=== PATIENT | male | born 1930 | race Caucasian/White ===

== ENCOUNTER 2018-11-12 13:38 | Inpatient (IN) | payer OTHER ==
[~2018-11-12] VITALS: Ht 177.8 cm; Wt 51.7 kg
--- NOTE | 2018-11-12 14:09 | NUR ---
PT TO ED FOR EVAL OF FALL. PT HAD FALLEN IN BATHROOM BETWEEN TOILET AND WALL. PT ARRIVED VIA [facility] WITH HEMATOMA TO TOP OF HEAD WITH ABRASION. NO ACTIVE BLEEDING. QUARTER SIZED ABRASION TO L SHOULDER. ECCHYMOSIS TO L RIB AREA. PAIN WITH PALPATION. SKIN TEAR TO L ELBOW. NO ACTIVE BLEEDING. DENIES PAIN OR DISCOMFORT TO NECK BACK OR HIP. PT AWAKE AND ORIENTED X 2. FOLLOWS ALL COMMANDS. NO DISTRESS. PT TO ROOM 9. PLACED ON MONITOR.
--- NOTE | 2018-11-12 14:27 | NUR ---
MSE COMPLETED BY DR. LOVETT.
[2018-11-12 14:42] LABS: BASOPHIL % 0.1 % (0-2); PLATELET COUNT 332 x10^3mcL (130-400)
--- NOTE | 2018-11-12 14:55 | NUR ---
PT TAKEN TO X-RAY VIA GURNEY BY IVORY, PT IN NO DISTRESS.
[2018-11-12 15:03] LABS: CALCIUM 9.4 mg/dL (8.5-10.1); CARBON DIOXIDE 29.9 mmol/L (21-32); CHLORIDE SERUM 103 mmol/L (98-107); CREATININE SERUM 0.9 mg/dL (0.7-1.3); GLUCOSE SERUM 103 mg/dL (74-106); POTASSIUM SERUM 4.5 mmol/L (3.5-5.1); SODIUM SERUM 140 mmol/L (136-145)
[2018-11-12 15:08] LABS: ALKALINE PHOSPHATASE 60 U/L (46-116); ALT/SGPT 18 U/L (16-63); AST/SGOT 24 U/L (15-37); BILIRUBIN TOTAL 0.6 mg/dL (0.20-1.00); TOTAL PROTEIN, SERUM 7.7 g/dL (6.4-8.2)
--- NOTE | 2018-11-12 15:18 | NUR ---
PT BROUGHT BACK FROM CT WITHOUT INCIDENCE.
--- NOTE | 2018-11-12 15:35 | NUR ---
DR. LOVETT AT BEDSIDE REEVALUATING PT. PT ABLE TO AMBULATE WITH ASSISTANCE.
--- NOTE | 2018-11-12 15:41 | NUR ---
CONTACTED PT'S SON MARK ANTHONY WHOM REPORTS PT AMBULATES WITH CANE OR WALKER AT HOME. SON REPORTS HE WILL BE ABLE TO LETTERPRESS SETTER PT AFTER 5 TODAY.
--- NOTE | 2018-11-12 15:45 | NUR ---
PT HAS SCATTERED ABRASIONS TO BACK AT DIFFERENT STAGES OF HEALING AND REDNESS TO COCCYX/BUTTOCK REGION.
--- NOTE | 2018-11-12 18:35 | NUR ---
SON MARK ANTHONY ARRIVED TO STOCK CLERK SELF SERVICE STORE PT AND VOICED CONCERNS THAT PT NEEDS TO BED MOVED FROM HOME WHERE HE RESIDES WITH AND GO TO A FACILITY THAT HE CAN RECEIVE "AROUND THE CLOCK CARE" D/T HIS WEAKNESS AND NOT BEING ABLE TO CARE FOR HIM BY HERSELF. DR. JACKMAN MADE AWARE AND WILL REEVALUATE PT.
--- NOTE | 2018-11-12 19:27 | NUR ---
REPORT GIVEN TO BHAVANI CHAVEZ.
--- NOTE | 2018-11-12 19:28 | NUR ---
RECEIVED REPORT FROM YASIR CHAVEZ. I WILL RESUME FURTHER OF THIS PATIENT.
--- NOTE | 2018-11-12 19:35 | NUR ---
NO DISTRESS NOTED AT THIS TIME, PT DENIES ANY PAIN. WILL CONT TO MONITOR.
--- NOTE | 2018-11-12 19:35 | NUR ---
PT AAOX2, ABLE TO VERBALIZE NEEDS AND FOLLOW COMMANDS, MD MADE AWARE. PT ON MONITOR, VSS. SON AND AT THE BEDSIDE. WILL CONT TO MONITOR PT.
--- NOTE | 2018-11-12 20:10 | NUR ---
ASSISTED PT TO USE URINAL, PT UNABLE TO URINATE AT THIS TIME. PT IS AAO4, NO DISTRESS NOTED AT THIS TIME, RESP E/U. SON AND AT THE BEDSIDE. WILL CONT TO MONITOR.
[2018-11-12 21:30] LABS: CHOLESTEROL/HDL RATIO 3.2; MAGNESIUM 1.8 mg/dL (1.8-2.4); PHOSPHOROUS 3.6 mg/dL (2.5-4.9)
--- NOTE | 2018-11-12 21:30 | NUR ---
PT IS RESTING IN POSITION OF COMFORT, AAOX1, NO DISTRESS NOTED. NO ONE AT THE BEDSIDE AT THIS TIME. WILL CONT TO MONITOR.
[2018-11-12 21:37] LABS: T3 TOTAL 0.89 ng/mL
[2018-11-12 21:41] LABS: FREE T4 1.04 ng/dL (0.76-1.46); T4(THYROXINE) 5.2 ug/dL (4.7-13.3)
--- NOTE | 2018-11-12 22:05 | NUR ---
MED REC AND BELONGINGS LIST DONE. PT IS AAOX1, PT ONLY KNOWS HIS NAME AT THIS TIME, PT IN NO DISTRESS, RESP E/U, PT ABLE TO FOLLOW COMMANDS AND VERBALIZE NEEDS. VSS. WILL CONT TO MONITOR.
--- NOTE | 2018-11-12 23:30 | NUR ---
GAVE REPORT TO FABRICE CHAVEZ [facility] WHO WILL RESUME FURTHER CARE OF THIS PT.
--- NOTE | 2018-11-12 23:51 | NUR ---
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
--- NOTE | 2018-11-12 23:51 | NUR ---
RECEIVED PT FROM ED VIA ALBERTO, CAME IN DUE TO PAIN AND MULTIPLE FALLS. AAOX1, FORGETFUL. ABLE TO FOLLOW SIMPLE COMMANDS. SPEECH IS CLEAR. NO ARM DRIFT NOTED. SPEECH IS CLEAR. NO SOB NOTED. LUNG SOUNDS CTA. DENIES CHEST PAIN/PRESSURE. DENIES ABDOMINAL DISCOMFORT. ABLE TO MOVE ALL EXTREMITIES. GENERALIZED WEAKNESS NOTED, ABLE TO TURN SELF IN BED W/ VERY MINIMAL ASSIST. W/ SCATTERED ABRASIONS/SCABS/BLANCHABLE ERYTHEMA ON BUE, LLE, AND BACK. W/ BLANCHABLE ERYTHEMA ON BILATERAL HEELS AND RIGHT SHOULDER. OPTIFOAM APPLIED ON THE BUTTOCKS FOR PROTECTION. URINE INCONTINENT. W/ TRACE EDEMA ON BLE. SIDE RAILS UPX2. CALL LIGHT ON REACH. HOB ELEVATED AT 30 DEG. BED ALARM ON. IV SITE PATENT AND INTACT. ENDORSED TO PRIMARY NURSE FABRICE FOR CONTINUITY OF CARE
[2018-11-13 00:22] VITALS: Ht 177.8 cm; Wt 51.7 kg
--- NOTE | 2018-11-13 01:59 | NUR ---
NO ACUTE DISTRESS OBSERVED AT THIS TIME. PT LAYING IN BED, BREATHING EVEN AND UNLABORED, EASILY AROUSABLE TO VERBAL STIMULI, DENIES PAIN OR DISCOMFORT. CALL LIGHT WITHIN REACH. WILL CONTINUE TO MONITOR
--- NOTE | 2018-11-13 02:31 | NUR ---
DR. CAN MADE AWARE NO ORDERS FOR CODE STATUS AT THIS TIME. WILL ANTICIPATE
[2018-11-13 05:55] VITALS: BP 141/58
[2018-11-13 06:18] LABS: PLATELET COUNT 264 x10^3mcL (130-400)
--- NOTE | 2018-11-13 06:23 | NUR ---
NO SIGNIFICANT CHANGES TO REPORT, PT COMPLIED WITH NURSING CARE THROUGHOUT THE SHIFT WITH NO ACUTE EVENTS OVERNIGHT. NO ACUTE DISTRESS OBSERVED AT THIS TIME, PT LAYING IN BED, BREATHING EVEN AND UNLABORED. COMFORT AND SAFETY MEASURES MAINTAINED. ALL NEEDS ASSESSED AND ATTENDED TO. CALL LIGHT WITHIN REACH. WILL CONTINUE TO MONITOR AND ENDORSE CARE TO DAY SHIFT NURSE
[2018-11-13 06:35] LABS: BASOPHIL % 0 % (0-2); RED CELL DISTRIBUTION WIDTH 16.1 % (11.5-14.5)
[2018-11-13 06:43] LABS: CARBON DIOXIDE 27.9 mmol/L (21-32); CHLORIDE SERUM 103 mmol/L (98-107); CREATININE SERUM 0.9 mg/dL (0.7-1.3); GLUCOSE SERUM 90 mg/dL (74-106); POTASSIUM SERUM 3.9 mmol/L (3.5-5.1); SODIUM SERUM 142 mmol/L (136-145)
--- NOTE | 2018-11-13 07:57 | NUR ---
RECEIVED PATIENT FROM SCOTT AVINA. PATIENT IN BED, NO COMPLAINTS OF PAIN OR SOB. A/OX1, PERSON. NEED TO REORIENT. CALL LIGHT IN REACH, BED IN LOWEST POSITION, BED ALARM ON, PATIENT NEAR NURSES STATION.
--- NOTE | 2018-11-13 08:46 | NUR ---
PT IN WITH PATIENT, PT LIZETH STATES HE IS ABLE TO WALK W CANE BUT CONTINUES TO BE CONFUSED. WILL CONTINUE TO MONITOR.
[2018-11-13 08:56] VITALS: BP 147/71
--- NOTE | 2018-11-13 10:15 | NUR ---
SPOKE W PATIENT SON MARK ANTHONY ABOUT HOME MEDICATIONS. WALTER ZEPEDA NOTIFIED THAT PATIENT URINE WAS RED TINGED. NOTIFIED DR OSBORNE ABOUT HOME MEDS & URINE. DR ALVARENGA IN TO SPEAK WITH PATIENT ABOUT PLAN OF CARE. PATIENT SEATED IN CHAIR W NO COMPLAINTS OF PAIN, AWARE TO CALL FOR STAFF FOR ASSISTANCE. CALL LIGHT IN REACH.
[2018-11-13] MEDS ORDERED: CARVEDILOL3.125 M1 PO (10:19)
[2018-11-13] MEDS ORDERED: PRILOSEC OTC20 M1 PO (10:20)
[2018-11-13] MEDS ORDERED: MEGL (10:23)
--- NOTE | 2018-11-13 12:34 | NUR ---
Initial Nutrition Assessment- Dx: Intractable Pain PMHx: Alzheimer's PSHx: none Labs: (11/13) BUN 28H Meds: NaCl IV, Zofran Diet: Regular diet x 0 day PO Intake: 50% of breakfast per RN notes. Ht: 5'10 Wt: 114 lb, 52 kg BMI: 16.4 kg/m2 (Underweight ) IBW: 166 lb, 75 kg %IBW: 69 UBW: unknown Age: 87 yrs old/Male Food Allergies: unknown Skin: R/L arm w/ scab/abrasion, R/L Medial bakc w/ scab/abrasion, R/L Medial buttocks w/ blanchable redness, R/L heel w/ blanchable redness, R shoulder w/ blanchable redness, LLE w/ scabs/abrasion, L hip w/ blanchable erythema Ismael: 19 Edema: trace edema to BLE GI: denies any abd discomfort, active bowel sounds. Last BM 11/12/18, formed. Pt seen sitting up in chair at time of RD visit. Pt appears to be altered and was not able to answer RD interview. Pt is underweight and ONS is warranted for additional calories and protein for wt gain promotion. Problem with: N/V/D/C: none Problems with: Chewing: no Swallowing: no Current appetite: fair Recent wt change: unknown %wt change: n/a Vitamin/Supplement use: unknown Special diet at home: none Physical activity: none, pt w/ generalized weakness Education: pt is not appropriate for nutrition education. Estimated Nutritional Needs Based on actual body weight 52 kg Energy: 1057-4404 kcal/d (30-35 kcal/kg-increased for wt gain promotion) Protein: 52-78 g/d (1-1.5 g/kg-Geriatric maintenance and preservation of lean body mass) Fluid: 1300 ml/d (25ml/kg -fluid balance) or per doctor Nutrition Diagnosis Underweight r/t advanced age AEB cognitive decline and BMI 16.4. Intervention *Recommend adding Ensure Enlive TID. ONS will provide additional 1050 kcal and 60 gm protein daily. Monitor/Evaluate Goal: PO intake at least 75% of estimated needs Monitor: PO intake, Labs, GI function F/U in 2-3 days as high risk (11/15-11/16)
--- NOTE | 2018-11-13 12:35 | NUR ---
*Recommend adding Ensure Enlive TID. ONS will provide additional 1050 kcal and 60 gm protein daily.
--- NOTE | 2018-11-13 17:15 | NUR ---
CONTACTED DR OSBORNE FOR PATIENT ORTHOSTATIC VS, AND FOR ADDITIONAL ORDERS FOR HOME MEDS. CURRENT BP IS 168/77, HR 72, DR OSBORNE AWARE. ALSO NOTIFIED THAT PATIENT URINE IS DARK IN COLOR, UNABLE TO COLLECT FOR UA. RECOMMENDED STRAIGHT CATH, DR OSBORNE RECOMMEND BLADDER SCAN FIRST. WILL AWAIT ORDERS FOR BLADDER SCAN. PATIENT BACK IN BED, NO COMPLAINTS OF PAIN. CALL LIGHT IN REACH.
--- NOTE | 2018-11-13 18:20 | NUR ---
BLADDER SCAN COMPLETED, RESIDUAL URINE IN BLADDER 160 ML. WILL ENDORSE TO ONCOMING NURSE TO NOTIFY CESSPOOL CLEANER RESIDENT. PATIENT IN BED, NO COMPLAINTS OF PAIN OR SOB AT THIS TIME.
--- NOTE | 2018-11-13 19:05 | NUR ---
RECEIVED PT LAYING IN BED, NO ACUTE DISTRESS OBSERVED, DENIES PAIN OR DISCOMFORT. AA/OX1, SELF ONLY, SPEECH CLEAR AND APPROPRIATE, ABLE TO MAKE NEEDS KNOWN, AROUSABLE TO VERBAL STIMULI. MED-SURG, NO TELE, NO CP. PULSES PRESENT AND EQUAL THROUGHOUT, TRACE EDEMA TO BLE. BREATHING ON RA, EVEN AND UNLABORED, NO SOB OR DYSPNEA OBSRVED, LUNGS CTA. ABD ROUND AND SOFT WITH ACTIVE BOWEL SOUNDS, NO N/V/D. INCONTINENT OF URINE, WILL PROVIDE PERICARE NEEDED, PER DAY SHIFT NURSE, BLOODY URINE NOTED FOR WHICH BLADDER SCAN YIELD 160 ML, SCROTAL EDEMA NOTED. GENERALIZED WEAKNESS NOTED, UP WITH P.T., FALL PRECAUTIONS IN PLACE, CANE AT BEDSIDE. BLANCHABLE ERYTHEMA TO BUTTOCKS, HYDRAGAURD AND OPTIFOAM IN PLACE, CDI. BLANCHABLE ERYTHEMA TO L HIP, HYDRAGAURD. SCABS AND ABRASIONS TO BACK, LUMBER STACKER. SCAB TO LLE, MAUREEN. SCABS AND SKIN TEAR TO LUE, LUMBER STACKER. BLANCHABLE ERYTHEMA TO BOTH HEELS, MAUREEN. IV TO LFA IN PLACE, DRY, PATENT, INTACT, AND INFUSING IVF WELL, NO PAIN, REDNESS OR SWELLING NOTED. COMFORT AND SAFETY MEASURES IN PLACE. BED IN LOWEST POSITION WITH SIDE RAILS UP X2 AND BED ALARM ACTIVATED. CALL LIGHT WITHIN REACH. WILL CONTINUE TO MONITOR
--- NOTE | 2018-11-13 19:05 | NUR ---
RECEIVED PT LAYING IN BED, NO ACUTE DISTRESS OBSERVED, DENIES PAIN OR DISCOMFORT. AA/OX1, SELF ONLY, SPEECH CLEAR AND APPROPRIATE, ABLE TO MAKE NEEDS KNOWN, AROUSABLE TO VERBAL STIMULI. MED-SURG, NO TELE, NO CP. PULSES PRESENT AND EQUAL THROUGHOUT, TRACE EDEMA TO BLE. BREATHING ON RA, EVEN AND UNLABORED, NO SOB OR DYSPNEA OBSRVED, LUNGS CTA. ABD ROUND AND SOFT WITH ACTIVE BOWEL SOUNDS, NO N/V/D. FREELY VOIDS URINE, INCONTINENT, WILL PROVIDE PERICARE NEEDED. GENERALIZED WEAKNESS NOTED, UP WITH P.T., FALL PRECAUTIONS IN PLACE, CANE AT BEDSIDE. BLANCHABLE ERYTHEMA TO BUTTOCKS, HYDRAGAURD AND OPTIFOAM IN PLACE, CDI. BLANCHABLE ERYTHEMA TO L HIP, HYDRAGAURD. SCABS AND ABRASIONS TO BACK, LPN INSTRUCTOR. SCAB TO LLE, MAUREEN. SCABS AND SKIN TEAR TO LUE, MAUREEN. BLANCHABLE ERYTHEMA TO BOTH HEELS, MAUREEN. IV TO LFA IN PLACE, DRY, PATENT, INTACT, AND INFUSING IVF WELL, NO PAIN, REDNESS OR SWELLING NOTED. COMFORT AND SAFETY MEASURES IN PLACE. BED IN LOWEST POSITION WITH SIDE RAILS UP X2 AND BED ALARM ACTIVATED. CALL LIGHT WITHIN REACH. WILL CONTINUE TO MONITOR
[2018-11-13 20:42] VITALS: BP 147/76
--- NOTE | 2018-11-13 22:25 | NUR ---
PT HAD INCONTINENT EPISODE OF DARK TEA COLORED URINE. SCROTAL EDEMA NOTED. DR. CAN MADE AWARE
--- NOTE | 2018-11-14 05:24 | NUR ---
NO SIGNIFICANT CHANGES TO REPORT, PT COMPLIED WITH NURSING CARE THROUGHOUT THE SHIFT WITH NO ACUTE EVENTS OVERNIGHT. NO ACUTE DISTRESS OBSERVED AT THIS TIME, PT LAYING IN BED, BREATHING EVEN AND UNLABORED, AROUSABLE TO VERBAL STIMULI. COMFORT AND SAFETY MEASURES MAINTAINED. ALL NEEDS ASSESSED AND ATTENDED TO. CALL LIGHT WITHIN REACH. WILL CONTINUE TO MONITOR AND ENDORSE CARE TO DAY SHIFT NURSE
[2018-11-14 05:43] VITALS: BP 145/66
--- NOTE | 2018-11-14 06:31 | NUR ---
DR. RICARDO MADE AWARE OF PT'S BLOOD TINGED/ORANGE FOUL SMELLING URINE
[2018-11-14 06:33] LABS: BASOPHIL % 0.3 % (0-2); PLATELET COUNT 236 x10^3mcL (130-400)
[2018-11-14 06:45] LABS: CHLORIDE SERUM 104 mmol/L (98-107); CREATININE SERUM 0.8 mg/dL (0.7-1.3); GLUCOSE SERUM 107 mg/dL (74-106); POTASSIUM SERUM 4.1 mmol/L (3.5-5.1); SODIUM SERUM 140 mmol/L (136-145)
--- NOTE | 2018-11-14 07:20 | NUR ---
RECEIVED PT IN BED. ASSESSED AND DOCUMENTED. DENIES PAIN THIS TIME. SAFTEY PRECAUTIONS ARE IN PLACE. WILL MONITOR.
[2018-11-14 07:31] LABS: RED CELL DISTRIBUTION WIDTH 15.8 % (11.5-14.5)
--- NOTE | 2018-11-14 10:00 | NUR ---
P.T CAME AND AMBULATED THE PT AND ASSISTED PT USED RESTROOM AND BACK PT TO BED. PT IS STABLE. DENIES ANY PAIN.
[2018-11-14 10:18] VITALS: BP 135/59
--- NOTE | 2018-11-14 13:00 | NUR ---
INFORMED ABOUT UA COLLECTED BY PT VOIDED IN URINAL, SHE SAID THAT IS FINE NO NEED STRAIGHT CATH NOW. UA SEND TO LAB. PT IS STABLE. ATE LUNCH.
[2018-11-14 13:58] LABS: UA SPECIFIC GRAVITY 1.025 (1.005-1.035); microscopic required? YES
[2018-11-14 13:59] LABS: urine erythrocyte 3+ (NEGATIVE)
--- NOTE | 2018-11-14 14:15 | NUR ---
INFORMED ABOUT PT UA RESULT. NO NEW ORDER RECEIVED THIS TIME.
[2018-11-14 14:23] VITALS: BP 135/59
--- NOTE | 2018-11-14 16:00 | NUR ---
CALLED PT'S SON AND LEFT MESSAGE FOR PT HAS BEEN DISCHARGED AND NEED RIDE HOME.
--- NOTE | 2018-11-14 17:30 | NUR ---
PT'S SON CALLED AND REQUESTING FOR DISCARGE PT TOMORROW AND HE WANT TO TAKE HIS FATHER TO [facility] TOMORROW RIDE AFTER DC FROM HOSPITAL. CALLED AND INFORMED , SHE SAID SHE WILL TALK TO PT'S SON, PHONE NO. PROVIDED.
[2018-11-14 17:40] VITALS: BP 124/60
--- NOTE | 2018-11-14 18:15 | NUR ---
RECEIVED ORDER FOR SNF PLACEMENT AFTER SPOKE WITH PT'S SON. CHARGE NURSE AWARE.
--- NOTE | 2018-11-14 19:10 | NUR ---
PT RESTING IN BED COMFORTABLY. DENIES ANY PAIN. STABLE. GAVE REPORT TO PRINTING MACHINE OPERATOR TAPE RULES NURSE.
--- NOTE | 2018-11-14 19:35 | NUR ---
PT RESTING COMFORTABLY IN BED WITH NO SIGNS OF ACUTE DISTRESS AT THIS TIME, PT A/O X 1 TO PERSON, PERIPHERAL PULSES PALPABLE THROUGHOUT, LUNG SOUNDS CTA, PT ON RA, BOWLE SOUNDS ACTIVE, ABD SOFT ROUND NONTENDER, PT INCONTINENT OF URINE, PT HAS GENERALIZED WEAKNESS CAN REPOSITION INDEPENDENTLY. SAFETY PRECAUTIONS IN PLACE WILL CONTINUE TO MONITOR
[2018-11-14 20:58] VITALS: BP 133/62
--- NOTE | 2018-11-14 21:50 | NUR ---
PT RESTING IN BED COMFORTABLY DENIES PAIN AT THIS TIME, NO ACUTE RESPIRATORY ISSUES AT THIS TIME, SAFETY PRECAUTIONS IN PLACE WILL CONTINUE TO MONITOR.
--- NOTE | 2018-11-15 00:25 | NUR ---
PT RESTING IN BED COMFORTABLY, DENIES PAIN AT THIS TIME, ALL NEEDS ATTENDED TO, SAFETY PRECAUTIONS IN PLACE WILL CONTINUE TO MONITOR
--- NOTE | 2018-11-15 03:20 | NUR ---
PT RESTING IN BED COMFORTABLY WATCHING TV, PT DENIES PAIN A THIS TIME, NO ACUTE RESPIRATORY DISTRESS AT THIS TIME, SAFETY PRECAUTIONS IN PLACE, WILL CONTINUE TO MONITOR
--- NOTE | 2018-11-15 05:21 | NUR ---
PT WATCHED TV THROUGH MOST OF THE NIGHT AND SLEPT FOR A SMALL PORTION OF THE NIGHT. PT HAD 2 VOIDS DURING THE NIGHT, ASPIRATION PRECAUTIONS MAINTAINED, SAFETY PRECAUTIONS MAINTAINED PT REPOSITIONED SELF THROUGH THE NIGHT. PT HAD NO EPISODE OF PAIN OR ACUTE DISTRESS THROUGH THE NIGHT, ALL NEEDS ATTENDED TO WILL CONTINUE TO MONITOR AND ENDORSE CARE TO ONCOMING RN
[2018-11-15 06:07] VITALS: BP 146/63
--- NOTE | 2018-11-15 07:20 | NUR ---
RECEIVED PT FROM CARRIER ASSOCIATE. ASSESSED AND DOCUMENTED. DENIES PAIN THIS TIME. SAFTEY PRECAUTIONS ARE IN PLACE. WILL MONITOR.
--- NOTE | 2018-11-15 07:24 | NUR ---
PHYSICAL THERAPY DAILY NOTES CO-SIGN All documentation done by the Vest Tailor for 11/15/18 has been reviewed. I agree with the documentation. Reviewed/Co-Signed by: Graciela Rodriguez PT Documentation Done by:DANNY OSHEA [facility]
[2018-11-15 09:42] VITALS: BP 147/70
--- NOTE | 2018-11-15 10:00 | NUR ---
PT IS STABLE. DENIES PAIN. RESTING IN BED COMFORTABLY.
--- NOTE | 2018-11-15 11:06 | NUR ---
Follow-up Nutrition Assessment Dx: Intractable pain Labs: (11/14) Na 140, K 4.1, BG 107H, BUN 28H, Cr 0.8, A1c 5.6, WBC 8.8, H/H 13.1/38L Meds: Antivert, Coreg, Megace, NSIV, Tylenol, Ultram, Zofran Diet: Regular PO intake: (11/14) B/D: 100% L: 80% (11/13) B/L: 100% D: 80% Weights: (11/13) 114#, 51.7 kg Skin: Blanchable redness to B/L buttocks, B/L heels, Rt shoulder, and left shoulder Ismael: 17 Edema: Trace edema to LE Last BM: x 1 (11/15) Per provider progress notes, no acute distress or acute events overnight. Pending plans in place for transfer to SNF for further care per family request. Pt. unable to answer nutrition related questions, as pt. is AO x1 and noted with confusion and with history of Alzheimer's. Pt. tolerating current diet order without GI distress noted per RN. No acute changes in nutritional status noted. Estimated Nutritional Needs based on CBW 51.7 kg: Energy: 1572-1451 kcal (30-35 kcal-wt. gain promotion) Protein: 52-78 g (1.0-1.5 g/kg-weight gain and prevention of lean body mass losses) Fluid: 6732-8201 mL (1 mL/kcal or per MD order-for fluid balance and maintenance) Nutrition Diagnosis 1. Underweight r/t advanced age AEB cognitive decline affecting overall nutritional status and measured BMI 16.4. (Ongoing-modified) Intervention 1. Continue regular diet as ordered and as tolerated. Continue Ensure Enlive TID for supplementation, which will provide 1050 calories and 60 g protein daily. Monitor/Evaluate Previous goal: PO intake at least 75% of estimated needs (met) Goal: PO intake at least 75% of estimated needs Monitor: PO intake, Labs, GI function, skin integrity F/U in 3-5 days as moderate risk (11/18-11/20)
--- NOTE | 2018-11-15 11:06 | NUR ---
Intervention/RD recommendations 1. Continue regular diet as ordered and as tolerated. Continue Ensure Enlive TID for supplementation, which will provide 1050 calories and 60 g protein daily.
[2018-11-15 11:49] VITALS: BP 147/70
--- NOTE | 2018-11-15 12:05 | NUR ---
PT'S SON CAME TO RECOVERY COLLECTOR PT. CALLED AND GAVE REPORT TO DOMINIC . INSTRUCTOR BUSINESS EDUCATION TERI CALLED AND SAID PT'S SON WILL TAKE PT TO [facility]. DISCHARGE INSTRUCTIONS GIVEN AND SIGNED BY PT;S ON WITH CHARGE NURSE. PT DENIES PAIN. IV REMOVED AND DRESSING APPLIED. BRAKE REPAIRER WHEELED PT DOWN TO LOBBY ACCOMPANIED WITH PT'S SON. PB SIGND AND SENT WITH PT. PT DC TO SNF.
--- NOTE | 2018-11-16 07:18 | NUR ---
PHYSICAL THERAPY DAILY NOTES CO-SIGN All documentation done by the Bag Valver for 11/16/18 has been reviewed. I agree with the documentation. Reviewed/Co-Signed by: Graciela Rodriguez PT Documentation Done by:NEY PEREZ PTA
== END 2018-11-15 12:10 | disposition home or self-care (01) | DRG 73 ==
LOC: ED 13:38 → MU 20:14
PROVIDERS: Emergency Medicine; Internal Medicine; ADMIT General Practice
DX: G90.8 Other disorders of autonomic nervous system (principal); N17.0 Acute kidney failure with tubular necrosis; E44.0 Moderate protein-calorie malnutrition; Z68.1 Body mass index [BMI] 19.9 or less, adult; S30.0XXA Contusion of lower back and pelvis, initial encounter; K21.9 Gastro-esophageal reflux disease without esophagitis; I10 Essential (primary) hypertension; G30.9 Alzheimer's disease, unspecified; F02.80 Dementia in other diseases classified elsewhere, unspecified severity, without behavioral disturbance, psychotic disturbance, mood disturbance, and anxiety; W18.39XA Other fall on same level, initial encounter; Y93.89 Activity, other specified; Y92.89 Other specified places as the place of occurrence of the external cause
CPT/HCPCS: 84439; 97116-GP; 97530-GP; J7030; J8597

== ENCOUNTER 2018-11-16 23:35 | Inpatient (IN) | payer OTHER ==
[~2018-11-16] VITALS: Ht 177.8 cm; Wt 47.2 kg
[~2018-11-16 23:35] MED LIST: CARVEDILOL3.125 M1 PO; MEGL; PRILOSEC OTC20 M1 PO
[2018-11-16 23:52] VITALS: Ht 177.8 cm; Wt 47.2 kg
--- NOTE | 2018-11-17 00:05 | NUR ---
PT BROUGHT TO ED BY [facility] S/P UNWITNESSED FALL AT [facility]. PER MEDICS, PT WAS FOUND ON THE FLOOR BY STAFF MEMBERS AFTER UNWITNESSED FALL. MEDICS STATE THAT PT HAS NO COMPLAINTS OF PAIN AT THIS TIME. MEDICS STATE THAT PT HAD EPISODE OF VOMITING AT THE FACITILY. PT AOX1 AT THIS TIME WITH A HX OF DEMENTIA. PT LUNG SOUNDS DIMINISHED TO L SIDE AND PT ON O2 AT THIS TIME FOR O2 OF 90 DURING TRANSPORT. PT NOTED WITH MILD SKIN TEARS TO BILATERAL ELBOWS. DR MURPHY AT BEDSIDE FOR MSE.
--- NOTE | 2018-11-17 00:18 | NUR ---
EKG IN PROGRESS
--- NOTE | 2018-11-17 00:37 | NUR ---
PT TAKEN FOR CT SCAN BY ORACLE FUSION MIDDLEWARE DEVELOPER
[2018-11-17 01:00] LABS: BASOPHIL % 0.3 % (0-2); PLATELET COUNT 338 x10^3mcL (130-400)
--- NOTE | 2018-11-17 01:19 | NUR ---
PT REMAINS FREE FROM S/S OF DISTRESS. AWAKE, ALERT, RESPIRATIONS EVEN AND UNLABORED. SAFETY PRECAUTIONS IN PLACE
[2018-11-17 01:22] LABS: CARBON DIOXIDE 32.4 mmol/L (21-32); CHLORIDE SERUM 101 mmol/L (98-107); GLUCOSE SERUM 123 mg/dL (74-106); POTASSIUM SERUM 3.9 mmol/L (3.5-5.1); SODIUM SERUM 139 mmol/L (136-145)
[2018-11-17 01:26] LABS: ALKALINE PHOSPHATASE 97 U/L (46-116); ALT/SGPT 46 U/L (16-63); AST/SGOT 36 U/L (15-37); BILIRUBIN TOTAL 0.6 mg/dL (0.20-1.00); LIPASE 139 IU/L (73-393)
[2018-11-17 01:28] LABS: ALBUMIN 2.8 g/dL (3.4-5.0); TOTAL PROTEIN, SERUM 8.3 g/dL (6.4-8.2)
[2018-11-17 01:59] LABS: microscopic required? YES; urine erythrocyte 3+ (NEGATIVE)
--- NOTE | 2018-11-17 02:08 | NUR ---
PT REMAINS FREE FROM S/S OF DISTRESS. RESPIRATIONS EVEN AND UNLABORED. SAFETY PRECAUTIONS IN PLACE
--- NOTE | 2018-11-17 02:12 | NUR ---
PT TAKEN OFF 02 AT THIS TIME BY DR. MURPHY TO ASSESS SATURATION WITHOUT OXYGEN. WILL MONITOR CLOSELY.
--- NOTE | 2018-11-17 02:17 | NUR ---
86% 02 SAT WITH NO OXYGEN. PT PLACED ON 2L REQUESTED BY DR. MURPHY. WILL CONTINUE TO MONITOR.
--- NOTE | 2018-11-17 02:19 | NUR ---
02 SAT 92-93% ON 2L/NC. DR. MURPHY MADE AWARE AND STATED TO KEEP PATIENT ON 2L/NC.
--- NOTE | 2018-11-17 02:34 | NUR ---
BREEDING MANAGER AT BEDSIDE
--- NOTE | 2018-11-17 02:41 | NUR ---
REPORT GIVEN TO ALICE CHAVEZ, ALL QUESTIONS AND CONCERNS WERE ADDRESSED
[2018-11-17 03:41] LABS: CHOLESTEROL/HDL RATIO 4.3; MAGNESIUM 1.6 mg/dL (1.8-2.4); PHOSPHOROUS 3.5 mg/dL (2.5-4.9)
[2018-11-17 03:52] VITALS: BP 162/68
[2018-11-17 03:53] LABS: FREE T4 1.2 ng/dL (0.76-1.46); T4(THYROXINE) 5.2 ug/dL (4.7-13.3)
--- NOTE | 2018-11-17 04:18 | NUR ---
RECEIVED PT FROM ER VIA ALBERTO ACCOMPANIED WITH NURSE AND EMT, PT IS FROM [facility] WITH C/O OF FOUND ON THE FLOOR BY STAFF AT [facility], PT IS AWAKE, ALERT AND ORIENTED TO SELF ONLY, CONFUSED WITH SITUATION, PLACE, DATE AND TIME, GARBLED SPEECH, BREATHING EVEN AND UNLABORED, LUNG SOUNDS DIMINISHED, ON AND OFF PRODUCTIVE COUGH, ON O2 3L VIA NC WITH NO RESP DISTRESS NOTED, ON TELE#28 NSR, NO S&S OF CHEST PAIN, WEAK PEDAL PULSES, EDEMA NOTED TO BLE, BLE WITH DISCOLORATION, ABD SOFT AND FLAT WITH ACTIVE BS, NO BM AT THIS TIME, INCONTINENT, PT VOIDED X 1 WITH URINAL AND NOTED WITH SOME BLOOD IN THE URINE, DR CAN MADE AWARE, SKIN TEAR TO MARYCRUZ ELBOWS, OPEN ULCER TO LEFT SIDE BUTTOCKS, NON-BLANCHABLE REDNESS TO BUTTOCKS, AIR MATTRESS IN PLACE, FALL PRECAUTION ON, SIDE RAILS UP, NO DISTRESS NOTED, WILL KEEP TO MONITOR.
[2018-11-17 04:58] LABS: T3 TOTAL 0.76 ng/mL
[2018-11-17 06:11] VITALS: BP 161/68
--- NOTE | 2018-11-17 07:30 | NUR ---
RECEIVED PT FROM DIAZO TECHNICIAN RN. PT AWAKE/ALERT. RESPIRATIONS EQUAL AND UNLABORED ON 2L NC. NO ACUTE RESP DISTRESS NOTED. NO SIGNS OR INDICATIONS OF PAIN NOTED. LACERATION TO LT INDEX FINGER COVERED WITH DRESSING, CDI. OPTIFOAM DRESSING IN PLACE. AIR MATTRESS IN PLACE. WILL CONTINUE TO MONITOR. CALL LIGHT IN REACH. BED IN LOWEST POSITION.
--- NOTE | 2018-11-17 07:45 | NUR ---
US TECHNICAN AT BEDSIDE PERFORMING US RENAL.
--- NOTE | 2018-11-17 08:29 | NUR ---
TITRATED O2 TO 2LNC. SPO2:98%. NO ACUTE RESP DISTRESS NOTED. WILL MONITOR
[2018-11-17 08:45] LABS: BASOPHIL % 0.1 % (0-2); PLATELET COUNT 294 x10^3mcL (130-400)
[2018-11-17 08:48] LABS: RED CELL DISTRIBUTION WIDTH 16.1 % (11.5-14.5)
--- NOTE | 2018-11-17 08:53 | NUR ---
SPOKE SON MARK ANTOHNY MOLINA UPDATED ON POC. PER MARK ANTHONY HOME PHONE AT .
[2018-11-17 09:01] LABS: CALCIUM 8.8 mg/dL (8.5-10.1); CARBON DIOXIDE 31.1 mmol/L (21-32); CHLORIDE SERUM 102 mmol/L (98-107); CREATININE SERUM 0.9 mg/dL (0.7-1.3); GLUCOSE SERUM 106 mg/dL (74-106); MAGNESIUM 1.6 mg/dL (1.8-2.4); POTASSIUM SERUM 4.1 mmol/L (3.5-5.1); SODIUM SERUM 140 mmol/L (136-145)
--- NOTE | 2018-11-17 10:12 | NUR ---
DR. ALVARENGA AT BEDSIDE. PER DR. ALVARENGA SWALLOW EVALUATIONS SHOULD BE DONE TODAY.
[2018-11-17 10:23] VITALS: BP 130/58
[2018-11-17 13:05] VITALS: BP 131/56
--- NOTE | 2018-11-17 13:05 | NUR ---
PT SITTING UP IN BED IN HIGH FOWLERS. NO ACUTE RESP DISTRESS NOTED ON 2L NC. PT GIVEN SMALL AMOUNT OF WATER. PT BEGINS TO COUGH. PT GIVEN SMALL AMOUNT OF LUNCH PT BEGINS TO COUGH. AWAITING SPEECH THERAPIST TO EVALUATE PT. WILL CONTINUE TO MONITOR. CALL LIGHT IN REACH. BED IN LOWEST POSITION.
--- NOTE | 2018-11-17 15:16 | NUR ---
CALLED SPEECH THERAPIST MARIE. PER MARIE HE IS UNAVAILABLE TO COME IN TODAY BUT WILL BE IN TOMORROW FOR SHALLOW EVAL.
--- NOTE | 2018-11-17 15:19 | NUR ---
SPOKE WITH VESTA CAN MARKER FROM [facility] UPDATED ON POC.
--- NOTE | 2018-11-17 15:22 | NUR ---
SPOKE WITH DR. RICARDO REGARDING PT UNABLE TO TOLERATED SWALLOWING CLEAR LIQUIDS AND FOODS. PER DR. RICARDO SHE WILL KEEP PT NPO UNTIL SWALLOW EVAL AND WILL CHANGE IV FLUIDS TO D5.
--- NOTE | 2018-11-17 15:41 | NUR ---
SPOKE WITH SON MARK ANTHONY MOLINA GIVEN UPDATED ON PT POC.
--- NOTE | 2018-11-17 17:00 | NUR ---
PAGED DR. RICARDO RE
--- NOTE | 2018-11-17 17:25 | NUR ---
PT SITTING UP IN BED. DROWSY BUT AROUSABLE TO VOICE. NO ACUTE RESP DISTRESS NOTED ON 2L NC. HELD PO MEDS. PT HAS DIFFICULTY SWALLOWING. IV TO LAC PATENT AND INFUSING. IV ANTIBIOTICS INFUSING ORDERED. NO REDNESS OR SWELLING NOTED. WILL CONTINUE TO MONITOR. CALL LIGHT IN REACH. BED IN LOWEST POSITION.
[2018-11-17 17:28] VITALS: BP 123/49
--- NOTE | 2018-11-17 18:38 | NUR ---
PT SITTING UP IN BED. RESPIRATIONS EQUAL AND UN
--- NOTE | 2018-11-17 18:47 | NUR ---
PT STTING UP AT BEDSIDE. NO ACUTE RESP DISTRESS NOTED ON 3L NC. PT DENIES ANY SOB AT THIS TIME. IV SALINE LOCKED TO LFA. NO REDNESS OR SWELLING NOTED. PT DENIES ANY PAIN AT THIS TIME. TELE#[id number]. WILL ENDORSE TO SEARCH ADVERTISING STRATEGIST RN. CALL LIGHT IN REACH. BED IN LOWEST POSITION.
--- NOTE | 2018-11-17 18:49 | NUR ---
PT POSITIONED SITTING UP IN BED. NO ACUTE RESP DISTRESS NOTED ON 2L NC. PT DENIES ANY SOB. PT DENIES ANY PAIN AT THIS TIME. IV PATENT AND INFUSING TO LFA. NO REDNESS OR SWELLING NOTED. PT USED URINAL EMPTIED 100 CC OF SPENSER URINE. WILL ENDORSE TO INTERACTIVE MEDIA DESIGNER RN. CALL LIGHT IN REACH. BED IN LOWEST POSITION. BED ALARM IN PLACE.
--- NOTE | 2018-11-17 19:20 | NUR ---
RECEIVED PT RESTING BUT AROUSABLE. ALERT TO PERSON AND PLACE. SLOW IN RESPONSE TO QUESTIONS. PUPILS 3MM IN SIZE AND BRISK B/E. DENIES HEADACHE AT THIS TIME. ON 2L NASAL CANNULA. BREATHING E/U. CHEST WALL EXPANSION SYMMETRICAL. CLEAR LUNG SOUNDS TO BUL, DIMINISHED TO BLL. NO SIGNS OF RESP DISTRESS NOTED. S1/S2 HEART SOUNDS AUDIBLE. DENIES CP AT THIS TIME. SKIN IS WARM/DRY, PALE IN COLOR. NO EDEMA NOTED. CAP REFILL <3 SEC TO BUE AND BLE. PIV TO L AC INTACT, PORT PATENT, DRESSING CDI. D5NS INFUSING @ 70ML/HR. ABD IS SOFT AND FLAT. HYPOACTIVE BOWEL SOUNDS AUSCULTATED TO ALL 4 ABD QUAD. DENIES ANY N/V. PT INCONTINENT OF URINE. GENERALIZED WEAKNESS NOTED. NO CONTRACTURES NOTED. JOINTS INTACT, NO JOINT SWELLING NOTED. X3 SIDE RAILS UP, BED IN LOWEST POSITION, AND CALL LIGHT WITHIN REACH. WILL RESUME CARE.
--- NOTE | 2018-11-17 19:26 | NUR ---
RECEIVED REPORT FROM ALICE CHAVEZ ON PT. ALL QUESTIONS ADDRESSED. UPDATES PROVIDED. WILL RESUME CARE.
[2018-11-17 21:00] VITALS: BP 149/64
--- NOTE | 2018-11-18 05:27 | NUR ---
PT RESTING BUT AROUSABLE. ORIENTED TO SELF AND LOCATION. ON 2L NASAL CANNULA. BREATHING E/U. NO SIGNS OF RESPIRATORY DISTRESS. DENIES CP OR HEADACHE AT THIS TIME. SKIN WARM/DRY TO TOUCH, PALE IN COLOR. S1/S2 HEART SOUNDS AUDIBLE. DENIES N/V OR ABD PAIN. INCONTINENT OF URINE. PADS CHANGED AND PT TURNED. X3 SIDE RAILS UP, BED IN LOWEST POSITION, CALL LIGHT WITHIN REACH. WILL ENDORSE CARE TO ONCOMING RN.
--- NOTE | 2018-11-18 07:10 | NUR ---
RECEIVED PT FROM WEIGHTS AND MEASURES SEALER RN. A/OX1. DROWSY BUT AROUSABLE TO VOICE. TELE#28. RESPIRATIONS EQUAL AND UNLABORED ON 2L NC. NO ACUTE RESP DISTRESS NOTED. PT DENIES ANY PAIN AT THIS TIME. IV TO LAC PATENT AND INFUSING. NO REDNESS OR SWELLING NOTED. DRESSING TO L INDEX FINGER CDI, DRESSING TO BILAT ELBOWS CDI, OPTIFOAM DRESSING IN PLACE TO L BUTTOCKS CDI. WILL CONTINUE TO MONITOR. CALL LIGHT IN REACH. BED IN LOWEST POSITION
[2018-11-18 07:13] LABS: BASOPHIL % 0.2 % (0-2); PLATELET COUNT 249 x10^3mcL (130-400)
[2018-11-18 07:18] LABS: RED CELL DISTRIBUTION WIDTH 15.7 % (11.5-14.5)
[2018-11-18 07:37] LABS: CALCIUM 8.9 mg/dL (8.5-10.1); CHLORIDE SERUM 102 mmol/L (98-107); CREATININE SERUM 0.9 mg/dL (0.7-1.3); GLUCOSE SERUM 96 mg/dL (74-106); MAGNESIUM 1.7 mg/dL (1.8-2.4); PHOSPHOROUS 3.3 mg/dL (2.5-4.9); POTASSIUM SERUM 4.4 mmol/L (3.5-5.1); SODIUM SERUM 140 mmol/L (136-145)
[2018-11-18 08:04] VITALS: BP 144/60
--- NOTE | 2018-11-18 09:01 | NUR ---
PT ATTEMPTING TO GET OUT OF BED TO USE BATHROOM. REORIENTED PT, REPOSITIONED ON LT SIDE. NO ACUTE RESP DISTRESS NOTED ON 2L NC. GIVEN COREG PO CRUSHED WITH SMALL AMOUNTS OF WATER. PT TOLERATED WELL. IV PATENT AND INFUSING TO LAC. WILL CONTINUE TO MONITOR. CALL LIGHT IN REACH. BED IN LOWEST POSITION. BED ALARM ON.
--- NOTE | 2018-11-18 09:06 | NUR ---
DECREASED FLOW ON NASAL CANNULA FROM 2 L/MIN TO 1 L/MIN.
--- NOTE | 2018-11-18 09:18 | NUR ---
RT SHANA AT BEDSIDE PUT PT ON 1L NC. NO ACUTE RESP DISTRESS NOTED.
--- NOTE | 2018-11-18 12:12 | NUR ---
SPOKE TO , MADE HER AWARE OF MG-1.7, NO NEW ORDER RECEIVED AND SHE SAYS TO CONTINUE MONITORING THE LEVEL DAILY AND AWAITS FOR SWALLOW EVAL. PUJA CHAVEZ ASSIGNED TO THIS PT MADE AWARE OF ABOVE.
[2018-11-18 12:23] VITALS: BP 138/77
--- NOTE | 2018-11-18 12:36 | NUR ---
PT SITTING UP IN BED. NO ACUTE RESP DISTRESS NOTED ON 1L NC. O2 SAT CHECKED 94%. IV PATENT AND INFUSING TO LAC. NO REDNESS OR SWELLING NOTED. PT ASKING TO EAT. SWALLOW EVAL PENDING. HOLDING PO MEDS UNTIL SWALLOW EVAL IS COMPLETED. WILL CONTINUE TO MONITOR. CALL LIGHT IN REACH. BED IN LOWEST POSITION. BED ALARM ON.
--- NOTE | 2018-11-18 13:10 | NUR ---
PT SITTING UP IN BED WATCHING TV. NO ACUTE RESP DISTRESS NOTED ON RA. O2 SAT CHECKED WAS 93%. WILL CONTINUE TO MONITOR.
--- NOTE | 2018-11-18 15:07 | NUR ---
PT SITTING UP IN BED. NO ACUTE RESP DISTRESS NOTED ON RA. SON MARK ANTHONY AND DARIO AT BEDSIDE UPDATED ON POC. WILL CONTINUE TO MONITOR. CALL LIGHT IN REACH. BED IN LOWEST POSITION. BED ALARM ON.
--- NOTE | 2018-11-18 15:15 | NUR ---
SPOKE WITH SPEECH THERAPIST MARIE. PER MARIE HE WILL DO SWALLOW EVAL AFTER 1730.
[2018-11-18 16:56] VITALS: BP 143/50
--- NOTE | 2018-11-18 17:09 | NUR ---
PT SITTING UP IN BED SLEEPING. NO ACUTE RESP DISTRESS NOTED ON 1L NC. IV PATENT AND INFUSING. NO REDNESS OR SWELLING NOTED. IV ANTIBIOTICS INFUSING ORDERED. WILL CONTINUE TO MONITOR. CALL LIGHT IN REACH. BED IN LOWEST POSITION. BED ALARM IN PLACE.
--- NOTE | 2018-11-18 17:29 | NUR ---
SPEECH THERAPIST MARIE AT BEDSIDE. RECOMMENDS PT BE ON PUREE DIET WITH NECTAR THICK LIQUIDS. PER MARIE ALL MEDS SHOULD BE CRUSHED AND MIXED WITH APPLESAUCE. DR. RICARDO MADE AWARE.
--- NOTE | 2018-11-18 17:31 | NUR ---
PT WAS SEEN FOR DYSPHAGIA. PT WAS ABLE TO SAFELY SWALLOW PUREE DIET WITH NECTAR THICK LIQUID. MILD COUGH FOR THIN LIQUID AND SOLID DIET. RECOMMENDATION PUREE DIET WITH NECTAR THICK LIQUID. SMALL BITES AND SIPS UPRIGHT POSITION.
--- NOTE | 2018-11-18 18:13 | NUR ---
CALLED SON MARK ANTHONY MOLINA, NO ANSWER, LEFT MESSAGE TO CALL BACK.
--- NOTE | 2018-11-18 19:00 | NUR ---
RECEIVED REPORT FROM REYNALDO CHAVEZ. UPDATES PROVIDED. WILL RESUME CARE.
--- NOTE | 2018-11-18 20:14 | NUR ---
PT'S SON MARK ANTHONY CALLED AND UPDATES GIVEN REGARDING SWALLOW EVAL.
[2018-11-18 20:52] VITALS: BP 136/63
--- NOTE | 2018-11-18 21:55 | NUR ---
PT PULLED OUT THE IV, RE-INSERTED TO RFA WITH 22G, PT IS AWAKE BUT VERY CONFUSED AND FORGETFUL, TOTAL BED BATH GIVEN, NEW OPTIFORM APPLIED TO COCCYX-SACRAL AREA, LEFT BUTTOCKS WITH CLOSED WOUND, WOUND BED IS BROWN, PINK AND WHITE, SKIN TEAR TO LEFT SIDE MIDDLE BACK WITH 3CM X 1CM, OPTIFORM APPLIED. PT ABLE TO REPOSITION BY HIMSELF IN BED, FALL PRECAUTION IN PLACE, SIDE RAILS UP.
--- NOTE | 2018-11-18 22:57 | NUR ---
PT TRIED GETTING OUT OF THE BED MULTIPLE TIMES, VERY CONFUSED/FORGETFUL, TAKES OFF TELE MONITOR, AND REMOVING LINES AND EQUIPMENT. REORIENTED PT MULTIPLE TIMES TO PLACE AND PURPOSE OF TREATMENT, ROOM CLOSE TO NURSES STATION, BED ALARM ON, X3 SIDE RAILS UP, AND EXPLAINED THE USE OF THE CALL LIGHT IF NEED OF ASSISTANCE. PT STILL NOT COOPERATIVE AND KEEPS GETTING OUT OF BED AND REMOVING LINES/EQUIPMENT. DR. CAN MADE AWARE AND ORDER FOR BILATERAL SOFT WRIST RESTRAINTS HAVE BEEN APPLIED. JOINTS INTACT, NO JOINT SWELLING NOTED. NO CONTRACTURES NOTED. PT ABLE TO MOVE FINGERS AND NO TINGLING/NUMBNESS STATED. WILL CONTINUE TO MONITOR.
--- NOTE | 2018-11-19 01:45 | NUR ---
PT ATTEMPTED TO TAKE OFF RESTRAINTS, TELE BOX, AND RESTRAINTS. REORIENTED PT, CHANGED LINEN, AND REPOSITIONED TO L SIDE. X3 SIDE RAILS UP. BED IN LOWEST POSITION. WILL CONTINUE TO MONITOR.
[2018-11-19 05:36] VITALS: BP 161/69
--- NOTE | 2018-11-19 05:57 | NUR ---
PT REMAINS CONFUSED AND FORGETFUL. REORIENTED PT TO PLACE, PURPOSE, TX, AND POC. BREATHING E/U. NO SIGNS OF RESP DISTRESS NOTED. BILATERAL SOFT WRIST RESTRAINTS APPLIED. JOINTS INTACT, NO JOINT SWELLING NOTED. NO TINGLINESS OR NUMBNESS STATED. X3 SIDE RAILS UP, BED IN LOWEST POSITION, CALL LIGHT WITHIN REACH.
[2018-11-19 07:00] LABS: CARBON DIOXIDE 28.9 mmol/L (21-32); CHLORIDE SERUM 100 mmol/L (98-107); CREATININE SERUM 0.9 mg/dL (0.7-1.3); GLUCOSE SERUM 86 mg/dL (74-106); MAGNESIUM 1.7 mg/dL (1.8-2.4); PHOSPHOROUS 2.6 mg/dL (2.5-4.9); POTASSIUM SERUM 3.7 mmol/L (3.5-5.1); SODIUM SERUM 138 mmol/L (136-145)
[2018-11-19 07:03] LABS: BASOPHIL % 0.3 % (0-2); PLATELET COUNT 344 x10^3mcL (130-400); RED CELL DISTRIBUTION WIDTH 15.5 % (11.5-14.5)
--- NOTE | 2018-11-19 08:00 | NUR ---
SHIFT ASSESSMENT DONE. PATIENT ALERT/CONFUSION. HX OF ALZHEIMERS DEMENTIA. 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 HR = 85. NO RESP DISTRESS ON RA. O2 SAT 95%. FINISHED 100% OF PUREED DIET BREAKFAST. NO N/V. HAD SOFT/LOOSE BM X2. URINE INTACT. SKIN LACERATION TO L INDEX FINGER W/ DRSG INTACT. SKIN TEAR TO MARYCRUZ ELBOWS INTACT. BUT SMALL DRIED OOZING TO L ELBOW DRSG NOTED. SKIN TEAR TO RT BACK, NO BLEEDING. ISLAND DRSG APPLIED. PATIENT ATTEMPTED TO OUT OF BED AND PULL OUT IV. MARYCRUZ WRIST SOFT RESTRAINTS IN PLACE. HANDS PINKISH AND WARM. B/B INCONT. ON AIR MATTRESS. TOTAL CARE. NO S/S OF ANY PAIN NOW. CALL LIGHT IN REACH. BED ALARM ON. ROOM CLOSE TO NURSING STATION.
[2018-11-19 09:41] VITALS: BP 159/83
[2018-11-19 13:34] VITALS: BP 142/82; BP 145/70
--- NOTE | 2018-11-19 14:39 | NUR ---
PHYSICAL THERAPY NOTE ATTEMPTED FOR SCHEDULED PHYSICAL THERAPY TREATMENT SESSION. PT REFUSED DUE TO TIREDNESS. REQUESTED TREATMENT FOR TOMORROW. WILL ATTEMPT FOR NEXT SCHEDULED PHYSICAL THERAPY TREATMENT.
[2018-11-19 17:48] VITALS: BP 161/78
--- NOTE | 2018-11-19 18:43 | NUR ---
CONDITION STABLE. NO SOB. O2 SAT 95% ON RA. TOLERATED PUREED DIET WELL. HAD LOOSE BM X4 THIS HSIFT, URINE INCONT. NO REDNESS TO COCCYX AREA NOW. ENDORSED CARE TO [facility] NURSE.
--- NOTE | 2018-11-19 19:30 | NUR ---
RECEIVED PT RESTING IN BED, AOX1 (SELF), PROVIDED REORIENTATION PRN. PT DENIES RUBALCAVA/DIZZINESS. MEDSURG PT, DENIES CP. PULSES PALPABLE BUE, WEAK PULSES BLE. RESP EVEN AND UNLABORED ON 1LNC, DENIES SOB. RT PROTOCOL. ABD SOFT, ROUND, DENIES ABD PAIN. PT INCONTINENT OF URINE AND STOOL. GENERALIZED WEAKNESS, ON AIR MATTRESS. PT WITH BILAT SOFT WRIST RESTRAINTS D/T PT AT RISK OF SELF INJURY R/T PULLING ON LINES/TUBING. PT WITH SKIN TEAR TO LEFT INDEX, COVERED WITH DSG CDI. BILAT ELBOWS COVERED WITH DSG AND KRZYSZTOF BANDAGE CDI. PT WITH DSG TO BUTTOCK FOR REDNESS, OPTIFORM CDI. PT DENIES PAIN AT THIS TIME. IV SITE TO RFA D5 NS @ 10ML/HR. NO REDNESS, SWELLING OR PAIN NOTED. ALL COMFORT AND SAFETY MEASURES PROVIDED FOR, CALL LIGHT WITHIN REACH, BED IN LOWEST POSITION, WILL CONTINUE TO MONITOR.
[2018-11-19 21:55] VITALS: BP 161/75
--- NOTE | 2018-11-19 22:30 | NUR ---
PT HAD BM IN BED, CLEANED PT, REPLACED OPTIFORM TO BUTTOCKED. PT TOLERATED CHANGE WELL. LINENS CHANGED, CALL WITHIN REACH, BED IN LOWEST POSITION, IV SITE REMAINS PATENT, WILL CONTINUE TO MONITOR.
--- NOTE | 2018-11-20 05:10 | NUR ---
PT RESTED IN INTERVALS DURING SHIFT, NO ACUTE CHANGES OCCURRING OVERNIGHT. PT HAD 2 BM AND URINATED DURING SHIFT. PT REMAINS ON 2LNC. PT MEDICATED X1 WITH NORCO FOR GENERALIZED PAIN. ALL COMFORT AND SAFETY MEASURES PROVIDED FOR, CALL LIGHT WITHIN REACH, BED IN LOWEST POSITION, WILL CONTINUE TO MONITOR.
--- NOTE | 2018-11-20 05:15 | NUR ---
PT RESTED IN INTERVALS DURING SHIFT, NO ACUTE CHANGES OCCURRING OVERNIGHT. PT REMAINS ON 1LNC, DENIES SOB. PT HAS BM X2 AND URINATED IN BED. PT WITH OPTIFORM IN PLACE. CDI. ALL COMFORT AND SAFETY MEASURES PROVIDED FOR, CALL LIGHT WITHIN REACH, BED IN LOWEST POSITION, WILL CONTINUE TO MONITIR.
[2018-11-20 06:17] VITALS: BP 179/84
[2018-11-20 06:29] LABS: BASOPHIL % 0.3 % (0-2); PLATELET COUNT 351 x10^3mcL (130-400)
[2018-11-20 06:53] LABS: RED CELL DISTRIBUTION WIDTH 15.4 % (11.5-14.5)
[2018-11-20 06:57] VITALS: BP 153/68
[2018-11-20 07:00] LABS: CALCIUM 9.2 mg/dL (8.5-10.1); CARBON DIOXIDE 30.8 mmol/L (21-32); CHLORIDE SERUM 100 mmol/L (98-107); GLUCOSE SERUM 89 mg/dL (74-106); MAGNESIUM 1.9 mg/dL (1.8-2.4); PHOSPHOROUS 3.3 mg/dL (2.5-4.9); POTASSIUM SERUM 3.7 mmol/L (3.5-5.1); SODIUM SERUM 139 mmol/L (136-145)
--- NOTE | 2018-11-20 07:03 | NUR ---
PHYSICAL THERAPY DAILY NOTES CO-SIGN All documentation done by the Steward Dishwasher for 11/20/18 has been reviewed. I agree with the documentation. Reviewed/Co-Signed by: Graciela Rodriguez PT Documentation Done by:DANNY OSHEA [facility] FOR 11/19/18
--- NOTE | 2018-11-20 07:37 | NUR ---
ENDORSED ALL CARE TO DAYSHIFT NURSE, ALL QUESTIONS AND CONCERNS ADDRESSED, ALL COMFORT AND SAFETY MEASURES PROVIDED FOR, CALL LIGHT WITHIN REACH. BED IN LOWEST POSITION.
--- NOTE | 2018-11-20 08:00 | NUR ---
SHIFT ASSESSMENT DONE. PATIENT ALERT/ORIENTED TO HIMSELF ONLY. HX OF ALZHEIMER DEMENTIA. NO SOB. BREATHING SOUND DIMINISHED TO LT BASE. OCCATIONAL COUGHING WITH SMALL AMOUNT YELLOWISH SPUTUM. RT PRTOCOL. GOOD APPETITE. BOWEL/URINE INCONT. SKIN TEAR TO MARYCRUZ ELBOW W/ VERSATEL DRSG INTACT. NO ACTIVE BLEEDING. SKIN TEAR LT INDEX FIGER WOUND CLOSED, WOOD TILE INSTALLER. SKIIN ABRASION AND RASHES TO BACK NOTED. ISLAND DRSG APPLED TO ABRASION WOUND. BIANCA-RECTAL REDNESS/ULCERS SUBSIDING. NEW RASHES TO BIANCA-RECTAL AREA SEEN. ANTIFUNGAL CREAM APPLIED. IVF TKO TO RFA. IV SITE CLEAN. D/C WRIST RESTRAINT. PATIENT WAS SELF FEEDING. ON AIR MATTRESS. ALL SIDE RAILS UP. BED ALARM ON. ROOM WAS CLOSING TO NURSING STATION.
[2018-11-20 09:00] VITALS: BP 172/77
--- NOTE | 2018-11-20 09:50 | NUR ---
WOUND CARE GIVEN BY WOUND CARE NURSE. PHOTO TAKEN.
[2018-11-20 10:44] VITALS: BP 133/71
[2018-11-20] MEDS ORDERED: ZOS3PM IV (11:04)
--- NOTE | 2018-11-20 11:45 | NUR ---
WOUND CARE EVALUATION NOTE: REASON FOR EVALUATION: SACRAL WOUND CLARIFICATION: SACRALCOCCYX SKIN INTACT, NO OPEN ACTIVE WOUND SKIN ASSESSMENT DONE WITH THIS 87 Y/O MALE PT ADMITTED TO [facility] WITH INITIAL DX OF PNA. PT IS AWAKE FOLLOW SIMPLE DIRECTIONS ABLE TO TURN WITH ASSISTANCE. SKIN IS WARM AND DRY, BLE FEW HAIR GROWTH, NO EDEMA, BLE PEDAL PULSES PRESENT AND NORMAL. CAPILLARY REFILLED < 2 SEC. PLAN OF CARE DISCUSSED WITH PRIMARY RN AND PT. NEED REINFORCEMENT ON PT EDUCATION. INTEGUMENTARY: -LEFT INDEX FINGER DRY SCAB FROM LARCERATION 1X0.5CM BIANCA-WOUND SKIN INTACT NO S/S OF INFECTION -LEFT ELBOW SKIN TEAR 1X1CM DRY THIN SCAB, BIANCA WOUND SKIN INTACT, VERSATEL DRESSING IN PLACE -RIGHT ELBOW SKIN TEAR 1X1CM DRY THIN SCAB, BIANCA WOUND SKIN INTACT, VERSATEL DRESSING IN PLACE -BLANCHABLE REDNESS TO SACROCOCCY AND BUTTOCKS -IAD TO INNER BUTTOCK, PERIANAL AND SCROTAL AREA, REDNESS WITH RASHES -RIGHT UPPER BACK SKIN TEAR 1X2CM WITH SUPERFICIAL DEPTH, WOUND BED IS RED AND MOIST, NO ODOR, BIANCA-WOUND SKIN INTACT -BLANCHABLE REDNESS TO BILATERAL HEELS RECOMMENDATIONS: -KEEP SKIN DRY AND CLEAN AT ALL TIMES, PLEASE CHECK Q2H AND PRN FOR INCONTINENCY OF BOWEL AND BLADDER. -APPLY ANTIFUNGAL CREAM TO RIGHT AND LEFT INNER BUTTOCKS EXTENDED TO PERIANAL BID AND PRN IF SOILING -APPLY FORM DRESSING TO SACROCOCCY AND BUTTOCKS Q7 DAYS AND PRN IF SOILING FOR PREVENTION -APPLY VERSATEL DRESSING TO RIGHT AND LEFT ELBOWS Q5 DAYS AND PRN IF SOILING, MONITOR PLACEMENT OF DRESSING Q SHIFT -APPLY HEEL RAISER TO BOTH HEELS AT ALL TIMES -OFFLOAD BILATERAL HEELS BY PLACING PILLOWS UNDER CALVES UNLESS OTHERWISE CONTRAINDICATED -PRESSURE REDISTUBUTION SURFACE THERAPY -TURN AND REPOSITION Q2H, OFFLOAD SACRALCOCCYX BY TURNING RIGHT AND LEFT -CONTINUE TO FOLLOW RD RECOMMENDATIONS ALL ABOVE RECOMMENDATIONS DISCUSSED WITH PRIMARY RN WILL FOLLOW UP PT Q7-10 DAYS. PLEASE CONTACT WOUND CARE NURSE FOR ANY QUESTION AND CHANGE OF WOUND CONDITION.
[2018-11-20 13:27] VITALS: BP 133/71
[2018-11-20 14:19] VITALS: BP 133/71
--- NOTE | 2018-11-20 14:32 | NUR ---
[facility] WOULD BE DISCHARGED TO [facility]. CALLED FOR REPORT [phone] THREE TIME AND WAITING FOR 15 MINS. NO ANSWER. BOOKING OFFICER TIME WOULD BE 3PM.
--- NOTE | 2018-11-20 14:43 | NUR ---
LEFT MESSAGE TO TRELLIS BAKING ASSISTANT. PATIENT WOULD BE TRANSFER TO [facility] AT 3 PM. PLEASE CALL ME FOR PATIENT'S REPORT.
--- NOTE | 2018-11-20 15:20 | NUR ---
TRANSFERD TO [facility], VIA MEDICAL TRANSPORTATION PER ORDER. IVHL'D TO RFA. PHOTOS OF SKIN LESION TAKEN. AND FILES. REPORT GIVEN TO FABRICE, NURSING DRAWBENCH OPERATOR HELPER. CONDITION STABLE.
--- NOTE | 2018-11-21 06:33 | NUR ---
PHYSICAL THERAPY DAILY NOTES CO-SIGN All documentation done by the Social Welfare Clerk for 11/21/18 has been reviewed. I agree with the documentation. Reviewed/Co-Signed by: Graciela Rodriguez PT Documentation Done by:NEY PEREZ PTA FOR 11/20/18
== END 2018-11-20 15:20 | DRG 177 ==
LOC: ED 23:35 → MU 11-17 02:28 → DU 11-17 02:28 → MU 11-19 12:55
PROVIDERS: Emergency Medicine; ADMIT Internal Medicine
DX: J69.0 Pneumonitis due to inhalation of food and vomit (principal); E43 Unspecified severe protein-calorie malnutrition; N17.0 Acute kidney failure with tubular necrosis; J44.1 Chronic obstructive pulmonary disease with (acute) exacerbation; E83.42 Hypomagnesemia; R73.03 Prediabetes; R80.9 Proteinuria, unspecified; E78.5 Hyperlipidemia, unspecified; G30.9 Alzheimer's disease, unspecified; F02.80 Dementia in other diseases classified elsewhere, unspecified severity, without behavioral disturbance, psychotic disturbance, mood disturbance, and anxiety; R13.10 Dysphagia, unspecified; Z68.21 Body mass index [BMI] 21.0-21.9, adult
CPT/HCPCS: 84439; 92526-GN; 92610; 97110-GP; J0692; J2405; J2543; J7030; J7042; J7060; J7620; Q0092

== ENCOUNTER 2019-03-14 22:59 | Emergency (ER) | payer OTHER ==
[~2019-03-14] VITALS: Ht 182.9 cm; Wt 81.6 kg
[~2019-03-14 22:59] MED LIST changes: +ZOS3PM IV
[2019-03-15 00:05] LABS: BASOPHIL % 0.4 % (0-2); PLATELET COUNT 383 x10^3mcL (130-400)
[2019-03-15 00:08] LABS: RED CELL DISTRIBUTION WIDTH 16.7 % (11.5-14.5)
[2019-03-15 00:12] LABS: CALCIUM 8.5 mg/dL (8.5-10.1); CARBON DIOXIDE 29.2 mmol/L (21-32); CHLORIDE SERUM 103 mmol/L (98-107); CREATININE SERUM 0.9 mg/dL (0.7-1.3); GLUCOSE SERUM 111 mg/dL (74-106); SODIUM SERUM 142 mmol/L (136-145)
[2019-03-15 00:16] LABS: ALKALINE PHOSPHATASE 63 U/L (46-116); ALT/SGPT 12 U/L (16-63); AST/SGOT 13 U/L (15-37); BILIRUBIN TOTAL 0.3 mg/dL (0.20-1.00); TOTAL PROTEIN, SERUM 7.3 g/dL (6.4-8.2)
[2019-03-15 00:21] LABS: ALBUMIN 2.8 g/dL (3.4-5.0)
[2019-03-15 00:50] LABS: microscopic required? YES; urine erythrocyte TRACE (NEGATIVE)
[2019-03-15 12:20] VITALS: BP 139/58
== END 2019-03-15 12:20 | disposition home or self-care (01) ==
LOC: ED 22:59
PROVIDERS: Emergency Medicine
DX: S51.811A Laceration without foreign body of right forearm, initial encounter (principal); S81.811A Laceration without foreign body, right lower leg, initial encounter; S00.03XA Contusion of scalp, initial encounter; I10 Essential (primary) hypertension; K21.9 Gastro-esophageal reflux disease without esophagitis; W18.39XA Other fall on same level, initial encounter; Y93.89 Activity, other specified; Y92.89 Other specified places as the place of occurrence of the external cause; Y99.8 Other external cause status
CPT/HCPCS: 36415; J2001; Q0092

== ENCOUNTER 2019-03-21 11:54 | Inpatient (IN) | payer OTHER ==
[~2019-03-21] VITALS: Ht 175.3 cm; Wt 55.8 kg
--- NOTE | 2019-03-21 12:26 | NUR ---
PT BIB [facility] C/C SOB GENERALIZE WEAKNESS PER MEDIC PT COMING [facility] PT NOT ACTING HIS NORMAL SELF PT ABLE TO FOLLOW SIMPLE DIRCTIONS PLACED ON MONITOR AWAITING FOR DR AMOS NEFF
--- NOTE | 2019-03-21 12:41 | NUR ---
DR URBANO AT TO [facility]
--- NOTE | 2019-03-21 12:55 | NUR ---
RT AT BEDSIDE FOR ABG
[2019-03-21 13:36] LABS: BASOPHIL % 0.1 % (0-2); PLATELET COUNT 391 x10^3mcL (130-400)
[2019-03-21 13:37] VITALS: Ht 175.3 cm; Wt 55.8 kg
--- NOTE | 2019-03-21 13:45 | NUR ---
PT STARTED ON IV ATB
[2019-03-21 13:46] LABS: CALCIUM 8.6 mg/dL (8.5-10.1); CARBON DIOXIDE 32.4 mmol/L (21-32); CHLORIDE SERUM 106 mmol/L (98-107); CREATININE SERUM 1.1 mg/dL (0.7-1.3); GLUCOSE SERUM 144 mg/dL (74-106); POTASSIUM SERUM 3.5 mmol/L (3.5-5.1); SODIUM SERUM 145 mmol/L (136-145)
[2019-03-21 13:47] LABS: RED CELL DISTRIBUTION WIDTH 17.2 % (11.5-14.5)
[2019-03-21 13:51] LABS: ALKALINE PHOSPHATASE 61 U/L (46-116); ALT/SGPT 18 U/L (16-63); AST/SGOT 16 U/L (15-37); BILIRUBIN TOTAL 0.85 mg/dL (0.20-1.00); TOTAL PROTEIN, SERUM 7.2 g/dL (6.4-8.2)
[2019-03-21 13:52] LABS: ALBUMIN 2.1 g/dL (3.4-5.0)
--- NOTE | 2019-03-21 14:45 | NUR ---
PT SITTING UP IN BED NO RESP DISTRESS NOTED
[2019-03-21 14:51] VITALS: BP 136/58
--- NOTE | 2019-03-21 15:42 | NUR ---
PT ADMIT TO TELE ROOM 243B GAVE REPORT TO TALYA
--- NOTE | 2019-03-21 15:44 | NUR ---
PLEASE ENTER FULL NAMES OF RESEARCH HYDROLOGIST/RN Patient data collected by (RESEARCH HYDROLOGIST):BRAEDEN RESEARCH HYDROLOGIST Assessment reviewed and completed by (RN): EMANUEL CHAVEZ
--- NOTE | 2019-03-21 16:14 | NUR ---
ASSUMED CARE OF PATIENT. ALERT AND ORIENTED TO NAME ONLY. ABLE TO RESPOND TO QUESTIONS BUT CONFUSED. PLACED ON TELE NUMBER 10, NSR. PULSES PALPABLE TO UPPER AND LOWER EXTREMITIES. +2 PITTING EDEMA ON LLE, +1 PITTING EDEMA TO RLE. INSPIRATORY CRACKLES ON BILATERAL LUNGS, ON 3L O2 VIA NC SATURATIONS AT 98%. BOWEL SOUNDS ACTIVE, PATIENT UNABLE TO ENDORSE LAST BM. ED REPORT OF URINE INCONTINENCE, UNABLE TO OBTAIN URINE SAMPLE DUE TO INCONTINENCE AND BLOOD/BLOCKAGE WITH STRAIGHT CATH. GENERALIZED WEAKNESS, FRAIGLE APPEARRING ELDERLY. LARGE BRUISE TO RIGHT FLANK WITH LARGE ABRASION, COVERED WITH DRESSING. STAGE 1 APPEARRING ULCER TO BILATERAL BUTTOCKS, APPROXIMATELY 2IDA1MF. 8CM LONG SUTURE ON RUE S/P FALL. SCATTERED SCABS NOTED TO BLE. NO COMPLAITNS OF PAIN. IV TO LAC PATENT AND INUFSING NS AT 50ML/HR. LEGS ELEVATED WITH PILLOW DUE TO REDNESS TO BILATERAL HEELS. WILL CONTINUE TO MONITOR.
[2019-03-21 16:17] VITALS: BP 111/57
--- NOTE | 2019-03-21 16:48 | NUR ---
RECEIVED PT FROM ER, PT ADMIT FOR PNA, HYPOXMIA, DEHYDRATION. PT IS A/O X1, ONLY RESPONSIVE TO NAME. LUNG SOUND CONGESTED MARYCRUZ, DRY COUGH, PT IS ON 3L/MIN O2 VIA NC. PO2 96%, PT IS ON TELE 10, SR WITH 1ST DEGREE AV BLOCK AND ELEVATED T WAVE, DENY ANY CHEST PAIN. BOWEL SOUND PRESENT ALL 4 QUADRANTS, NO DISTENTION, NO TENDER. PEDAL PULSE PRESENT BOTH FEET, +2 EDEMA MARYCRUZ FOOT. IV AT LEFT AC, NO LEAKING, NO INFILTRATION. THERE IS A LARGE ECCHYMOSIS AT RIGHT FLANK WITH MULTIPLE ABRASION, CDI. RIGHT FA LACERATION WITH SUTURE MAUREEN. MARYCRUZ BUTTOCK OPEN WOUND CDI. LLE MULTIPLE DRY SCABS. ALL ADLS ASSIST, ALL NEED MET, CALL LIGHT IN REACH, WILL CONTINUE TO MONITOR.
--- NOTE | 2019-03-21 17:43 | NUR ---
DRESSING TO RIGHT FLANK WOUND CHANGED. WOUND CLEANSED WITH WOUND CLEANSER AND EMULSION DRESSING APPLIED WITH ISLAND DRESSING. BUTTOCK WOUND CLEANED WITH WOUND CLEANSER, OPTIFOAM PLACED. ZGAURD PLACED AROUND THIGHS.
--- NOTE | 2019-03-21 17:55 | NUR ---
CALL FROM SON MARK ANTHONY MOLINA REQUESTING UPDATE. PATIENT STATES FATHER COUGHS WHEN EATING FOOD. SWALLOW EVAL REQUEST TO BE PASSED ON TO WOOD ROOM HAND PER CHARGE NURSE LINDA. ALL QUESTIONS ANSWERED FOR FAMILY.
--- NOTE | 2019-03-21 18:40 | NUR ---
PATIENT RESTING IN BED WITH EQUAL AND MILDLY LABORED RESPIRATIONS. ABDOMINAL BREATHING NOTED. REMAINING ON 3L O2 VIA NC AT THIS TIME. IV TO LAC PATENT AND INUFSING NS AT 50ML/HR. WILL ENDORSE CARE TO ONCOMING RN.
--- NOTE | 2019-03-21 19:42 | NUR ---
PT IN BED HOB ELEVATED ASPIRATION PREC OBSERVED UNABLE TO YAMILEX REGULAR CONSISTENCY DIET OBSERVED COUGHING WITH THIN LIQ AND SPITTING OUT FOOD DISTRESS LUNGS AUDIBLE CRACKLES BILAT WITH CONGESTION, 02 @3L/NC, TELE #10 SR ELEVATED TWAVE, NO CP OR PRESSURE, AAO X2 SLOW TO RESPOND, GARBLED SPEECH, [place], MULTIPLE BRUISING IN BODY PARTS S/P FALL, BED ALARM ON, ENCOURAGED PT TO USE THE CALL LIGHT FOR ASSISTANCE CALL LIGHT AT REACH, SAFETY PREC EMPHASIZED IVF NS INFUSING @ 50CC/HR IV ACCESS LAC PATENT NON INFIL, BLE ELEVATED WITH PILLOWS REPOSITIONED TO COMFORT, SHIFT ASSESSMENT DONE, CONT TO MONITOR.
[2019-03-21 21:30] VITALS: BP 147/68
--- NOTE | 2019-03-21 21:44 | NUR ---
TALKED TO DR HUGGINS RE PT'S COUGHING WHEN DRINKING THIN LIQ ALSO NOT TOLERATING REGULAR CONSISTENCY DIET, PT IS AT RISK FOR ASPIRATION, REQUESTED FOR SWALLOW EVAL, AWAITING FOR ORDERS.
[2019-03-22 06:02] VITALS: BP 142/55
--- NOTE | 2019-03-22 06:21 | NUR ---
PT SLEPT WELL DURING THE SHIFT WITH OCC MOIST NON PRODUCTIVE COUGH, NO DISTRESS, CRACKLES BILAT LUNGS, VOIDING FREELY WITH DARK SPENSER URINE OUTPUT, UNABLE TO COLLECT URINE PT IS INCONTINENT AND HAS RESISTANT WHEN F/C INSERTED AT ER, TRIED CONDOM CATH BUT IT CAME OFF, WILL ATTEMPT AGAIN, BOTH BUTTOCKS OPEN SORE WITH INTACT AND CLEAN OPTIFOAM DRESSING. NEW IV ACCESS ESTABLISHED AT [facility], KEEP DRY AND CLEAN, REPOSITIONED TO COMFORT, CONT TO MONITOR.
[2019-03-22 06:24] LABS: BASOPHIL % 0.1 % (0-2); PLATELET COUNT 339 x10^3mcL (130-400)
[2019-03-22 06:38] LABS: CALCIUM 8.2 mg/dL (8.5-10.1); CARBON DIOXIDE 29.4 mmol/L (21-32); CHLORIDE SERUM 110 mmol/L (98-107); CREATININE SERUM 0.9 mg/dL (0.7-1.3); GLUCOSE SERUM 91 mg/dL (74-106); POTASSIUM SERUM 3.2 mmol/L (3.5-5.1); SODIUM SERUM 147 mmol/L (136-145)
[2019-03-22 06:50] LABS: RED CELL DISTRIBUTION WIDTH 17.5 % (11.5-14.5)
--- NOTE | 2019-03-22 07:10 | NUR ---
RECEIVED PT FROM RICARDO RN. PT FOUND LAYING IN BED. AA/OX2 (PERSON/PLACE) REORIENTED TO TIME/EVENT. FORGETFUL. HX: DEMENTIA. ASPIRATION PRECAUTIONS IN PLACE. FALL PRECAUTIONS IN PLACE. NO S/S OF ACUTE DISTRESS. CONGESTED COUGH NOTED. CRACKLES HEARD BILATERALLY ON 3LNC. DENIES SOB AT THIS TIME. CHEST EXPANSION SYMMETRICAL. NO S/S OF ACUTE RESPIRATORY DISTRESS. SUCTION AT BEDSIDE. NSR ON TELE 10 WITH OCCASIONAL PVCS. DENIES CHEST PAIN. IV WNL TO RFA, 20 GAUGE. PATENT AND FLUSHES WELL. SITE WNL. SIDE RAILS UP X2. BED IN LOW POSITION. CALL LIGHT WITHIN REACH. WILL CONTINUE TO MONITOR.
[2019-03-22 08:04] VITALS: BP 111/54
--- NOTE | 2019-03-22 10:43 | NUR ---
PT RESTING IN BED WITH BOTH EYES CLOSED. LATE ENTRY: AMBULATED WITH PHYSICAL THERAPY, TOLERATED POORLY, GAIT UNSTEADY PER PT, O2 SATURATION DECREASED FROM 93% TO 89% ON 3LNC, INCREASED BACK TO 94% AFTER RESTING. CONGESTED COUGH NOTED WITH SOB WITH EXERTION. PT BACK IN BED RESTING. NO S/S OF ACUTE DISTRESS. ASPIRATION PRECAUTIONS IN PLACE. IV WNL TO RW, IV FLUIDS FLOWING. NO S/S OF ACUTE DISTRESS. FALL PRECAUTIONS IN PLACE. BED IN LOW POSITION. CALL LIGHT WITHIN REACH. WILL CONTINUE TO MONITOR.
[2019-03-22 11:30] VITALS: BP 134/54
[2019-03-22 11:40] LABS: UA SPECIFIC GRAVITY 1.025 (1.005-1.035); microscopic required? YES; urine erythrocyte 3+ (NEGATIVE)
--- NOTE | 2019-03-22 14:28 | NUR ---
WOUND CARE EVALUATION NOTE: REASON FOR EVALUATION: PRESSURE ULCER SKIN ASSESSMENT DONE WITH THIS 88 Y/O MALE PT. ADMITTED FROM [place] TO [facility] INITIAL DX OF PNA. PT. VISITED AT ED ON 03/14/19 S/P FALL WITH SUTURE AT RIGHT FOREARM. HEMOGLOBIN 8.9L AND ALBUMIN 2.1L. ALL ABOVE INFORMATION OBTAINED FROM ADMISSION H&P. PT IS AWAKE, ABLE TO FOLOW SIMPLE DIRECTIONS. SKIN IS WARM AND DRY, POOR SKIN TURGOR, PALE SKIN COLOR IN GENERNAL. MULTIPLE ECCHYMOSIS TO LIMBS AND TRUNK OF BODY WITH MULTIPLE DRY SCABS TO LOWER LEGS. DORSAL PEDAL PULSES PRESENT. PLAN OF CARE DISCUSSED WITH PT AND PRIMARY RN. INTEGUMENTARY: -RIGHT FOREARM LACERATION WITH SUTURES INPLACE, DRY AND CLEAN, -RIGHT BUTTOCK PRESSURE ULCER STAGE 2, 2X2 CM, SUPERFICIAL DEPTH, 100% GRANULATING TISSUE, MOIST, NO ODOR, BIANCA WOUND SKIN INTACT WITH SURROUNDING REDNESS INDICATED FURTHER DAMAGE. -LEFT BUTTOCK PRESSURE ULCER STAGE 2, 2X2 CM, SUPERFICIAL DEPTH, 100% GRANULATING TISSUE, MOIST, NO ODOR, BIANCA- WOUND SKIN INTACT WITH SURROUNDING REDNESS INDICATED FURTHER DAMAGE. -SACRALCOCCYX PRESSURE ULCER STAGE 1, 5X7 CM, BUTTERFLY SHAPE, NONBLANCHABLE REDNESS, SKIN INTACT, WITH SURROUNDING REDNESS INDICATED FURTHER DAMAGE. RECOMMENDATIONS: -CLEANSE RIGHT FOREARM SUTURE LINES WITH NS. PAT DRY AND COVER WITH ISLAND DRESSINGQD AND F/U WITH MD FOR SUTURE REMOVAL 7-10 DAYS -CLEANSE SACRALCOCCYX WITH NS. PAT. DRY APPLY OPTIFOAM QDAY AND PRN IF SOILING - CLEANSERIGHT AND LEFT BUTTOCKS WITH NS. PAT. DRY APPLY Z GUARD AND COVER WITH OPTIFOAM QDAY AND PRN IF SOILING -APPLY HEEL PROTECTOR TO BILATERAL HEELS WHEN IN BED -OFFLOAD BILATERAL HEELS BY PLACING PILLOWS UNDER CALVES UNLESS OTHERWISE CONTRAINDICATED -PRESSURE REDISTRIBUTION SURFACE THERAPY -TURN AND REPOSITION Q2H, OFFLOAD RIGHT AND LEFT BUTTOCKS AND SACRALCOCCYX -CONTINUE TO FOLLOW RD RECOMMENDATIONS ALL ABOVE RECOMMENDATIONS DISCUSSED WITH PRIMARY RN
--- NOTE | 2019-03-22 14:40 | NUR ---
PT PLACED ON AIR MATTRESS, PT HAD BM X1, INCONTINENT OF URINE X1. PERINEAL/PERIANAL CARE PROVIDED. LINEN CHANGED. WOUND CARE PROVIDED TO SACRAL COCCYX WOUNDS, WOUNDS/SACRAL COCCYX GENTLY CLEANSED WITH NS, GENTLY PATTED DRY, ZGUARD APPLIED TO WOUNDS X2, OPTIFOAM APPLIED. ASSISTED PT TO REPOSITION TO RIGHT SIDE. BLE ELEVATED WITH PILLOW, SCDS IN PLACE. FALL PRECAUTIONS IN PLACE. PT AA/OX4. NO COMPLAINT OF PAIN. NO SOB ON 3LNC AT THIS TIME. SUCTIONED PRN, ORAL MUCUS APPEARS YELLOW. CONGESTED COUGH NOTED. IV WNL TO RFA, IV FLUIDS FLOWING. SITE WNL. BED IN LOW POSITION. CALL LIGHT WITHIN REACH. SIDE RAILS UP X2. INSTRUCTED TO USE CALL LIGHT TO CALL FOR ASSISTANCE PRN. VERBALIZED UNDERSTANDING. WILL CONTINUE TO MONITOR.
[2019-03-22 15:51] VITALS: BP 142/58
--- NOTE | 2019-03-22 17:53 | NUR ---
PT WAS SEEN FOR DYSPHAGIA. PT WAS ABLE TO SAFELY SWALLOW PUREE DIET WITH HONEY THICK LIQUID WITHOUT S/S OF ASPIRATION. PT HAD MILD COUGH FOR THIN LIQUID. RECOMMENDATION PUREE DIET WITH HONEY THICK LIQUID SMALL BITES AND SIPS ONLY 1:1 SUPERVISION.
--- NOTE | 2019-03-22 18:17 | NUR ---
PT SITTING UP IN BED IN HIGH BYRD. AA/OX1. CONFUSED/FORGETFUL AT TIMES. NO S/S OF ACUTE DISTRESS. FORGETFUL. TOLERATING PUREE DIET WITH HONEY THICK LIQUIDS. CONGESTED COUGH NOTED. TOTAL OUTPUT FOR SPUTUM TODAY 100CC, YELLOW TINGED. NO N/V. NO SOB ON 3LNC. NO CHEST PAIN. IV WNL, IV ANTIBIOTICS RUNNING. SIDE RAILS UP X2. AIR MATTRESS IN PLACE. BLE ELEVATED WITH PILLOW. FALL PRECAUTIONS IN PLACE. ISLAND DRESSING TO RUE CDI. OPTIFOAM TO SACRALCOCCYX CDI. BED IN LOW POSITION. CALL LIGHT WITHIN REACH. WILL ENDORSE TO ONCOMING SHIFT.
--- NOTE | 2019-03-22 19:20 | NUR ---
RECIEVED PT IN NO ACUTE DISTRESS. AOX2. TELE #10, SR. BREATHING E/U. LUNG SOUNDS CONGESTED ON NC @ 3L. ECCHYMOSIS TO R FLANK AND FOREHEAD. DRESSING TO RFA AND SACRUM CDI. DRY SCABS TO BLE. ON AIR MATTRESS. DENIES PAIN. IV TO RFA, PATENT. HOB AT 45 DEGREES. BED IN LOWEST POSITION, 2 SIDE RAILS UP, CALL LIGHT IN REACH. INSTRUCTED TO CALL FOR ASSISTANCE.
[2019-03-22 19:34] VITALS: BP 122/50
--- NOTE | 2019-03-23 00:55 | NUR ---
RESTING WITH EYES CLOSED. BREATHING E/U. NO ACUTE DISTRESS NOTED. HOB AT 45 DEGREES. WILL CONTINUE TO MONITOR.
[2019-03-23 05:24] VITALS: BP 147/68
--- NOTE | 2019-03-23 06:01 | NUR ---
PT CONTINUES TO HAVE CONGESTED COUGH. NO ACUTE DISTRESS NOTED. WILL ENDORSE TO ONCOMING RN.
[2019-03-23 06:56] LABS: CALCIUM 7.9 mg/dL (8.5-10.1); CARBON DIOXIDE 29.2 mmol/L (21-32); CHLORIDE SERUM 109 mmol/L (98-107); CREATININE SERUM 0.7 mg/dL (0.7-1.3); GLUCOSE SERUM 100 mg/dL (74-106); POTASSIUM SERUM 3.4 mmol/L (3.5-5.1); SODIUM SERUM 146 mmol/L (136-145)
--- NOTE | 2019-03-23 06:58 | NUR ---
RECEIVED PT FROM MIG TIG WELDER NURSE. PT RESTING IN BED, AOX2, RESP E/U ON 3L NC. SEEMED SLIGHTLY CONFUSED, STATED HE FELT NEGLECTED LAST NIGHT. REORIENTED CLIENT TO USE OF CALL LIGHT FOR ASSISTANCE AND THAT ROUTINE CHECKS WILL BE DONE DURING THE SHIFT. OTHERWISE NO ACUTE DISTRESS NOTED. ON TELE 10 SHOWING SR W/ PVCS, HR: 76. IV TO RFA W/ NO SIGNS OF INFILTRATION, IVF INFUSING WELL. BED IN LOWEST POSITION AND CALL LIGHT WITHIN REACH. WILL CONTINUE TO MONITOR.
[2019-03-23 07:25] LABS: BASOPHIL % 0.2 % (0-2); PLATELET COUNT 374 x10^3mcL (130-400)
[2019-03-23 07:34] VITALS: BP 141/60; BP 144/93
[2019-03-23 07:38] LABS: RED CELL DISTRIBUTION WIDTH 17.3 % (11.5-14.5)
--- NOTE | 2019-03-23 12:10 | NUR ---
PT RESTING W/ HOB ELEVATED, ALERT/AWAKE, RESP E/U ON 3L NC. SEEMED SLIGHTLY CONFUSED, STATED "CAN YOU TELL ME HOW TO GET UPSTAIRS?" REORIENTED PT TO HIS ROOM AND CURRENT LOCATION. OTHERWISE NO ACUTE DISTRESS NOTED. BED IN LOWEST POSITION AND CALL LIGHT WITHIN REACH. WILL CONTINUE TO MONITOR.
[2019-03-23 12:17] VITALS: BP 118/64
[2019-03-23 16:46] VITALS: BP 140/60
--- NOTE | 2019-03-23 17:25 | NUR ---
PT RESTING W/ HOB ELEVATED, AOX2, RESP E/U ON 3L NC. DENIES CHEST PAIN, NO SIGNS OF RESP DISTRESS NOTED. IV TO RFA W/ NO SIGNS OF INFILTRATION, IVF UNFUSING WELL. BED IN LOWEST POSITION AND CALL LIGHT WITHIN REACH. WALTER ZEPEDA ASSISTING PT W/ MEAL, TOLERATING PUREE DIET WELL. PT SON AT BEDSIDE. WILL ENDORSE TO ONCOMING NURSE.
[2019-03-23 19:56] VITALS: BP 148/59
--- NOTE | 2019-03-23 20:35 | NUR ---
PT CURRENTLY RESTING IN BED, NO ACUTE DISTRESS. A/O X2, CONFUSED, HX OF ALZHEIMERS. TELE #2 SHOWING SINUS RHYTHM WITH OCCASIONAL PVC'S. DENIES CHEST PAIN. PULSES PALPABLE IN ALL EXTREMITIES, BLE TRACE EDEMA NOTED. LUNG SOUND FINE CRACKLES BILATERALLY, DENIES SOB. O2 VIA NC AT 3L. CONGESTED COUGH NOTED. BOWEL SOUNDS ACTIVE, LAST BM 03/23/19. INCONTINENT. GENERALIZED WEAKNESS. ECCHYMOSIS TO RIGHT FLANK AND FOREHEAD. WOUND TO RIGHT FOREARM, DRESSING CDI. SACRAL/COCCYX WOUNDS X2, OPTIFOAM DRESSING IN PLACE. LEFT LEG SCAB, MAUREEN. IV PATENT AND INTACT. BED IN LOWEST POSITION, SIDE RAILS UP X2, CALL LIGHT WITHIN REACH. WILL CONTINUE TO MONITOR.
--- NOTE | 2019-03-24 00:03 | NUR ---
PT CURRENTLY RESTING IN BED, NO ACUTE DISTRESS. WILL CONTINUE TO MONITOR.
[2019-03-24 05:14] VITALS: BP 140/63
[2019-03-24 06:12] LABS: BASOPHIL % 0.1 % (0-2); PLATELET COUNT 394 x10^3mcL (130-400)
[2019-03-24 06:36] LABS: CALCIUM 7.9 mg/dL (8.5-10.1); CARBON DIOXIDE 31.1 mmol/L (21-32); CHLORIDE SERUM 104 mmol/L (98-107); CREATININE SERUM 0.9 mg/dL (0.7-1.3); GLUCOSE SERUM 105 mg/dL (74-106); POTASSIUM SERUM 3.7 mmol/L (3.5-5.1); SODIUM SERUM 142 mmol/L (136-145)
--- NOTE | 2019-03-24 06:38 | NUR ---
PT SLEPT PERIODICALLY THROUGHOUT NIGHT, NO ACUTE DISTRESS. ALL NEEDS MET AND ATTENDED TO. NO SIGNIFICANT CHANGES. IV PATENT AND INTACT. BED IN LOWEST POSITION, SIDE RAILS UP X2, CALL LIGHT WITHIN REACH. WILL ENDORSE CARE TO ONCOMING NURSE.
[2019-03-24 06:43] LABS: RED CELL DISTRIBUTION WIDTH 17.2 % (11.5-14.5)
--- NOTE | 2019-03-24 07:30 | NUR ---
PT ENDORSE TO ME THIS MORNING, LAYING IN BED. AA/O X2. BREATHING EVEN AND UNLABORED ON 4LNC SATING AT 94% NO ACUTE RESP DISTRESS OR SOB NOTED. TELE 10 SR WITH PVCS NOTED,NO SIGN OF CP OR PRESSURE NOTED. BOWEL SOUNDS ACATIVE IN ALL FOUR QUADS. INCONT. GEN WEAKNESS NOTED, AIR MATTRESS, DISCOLORATION NOTED RIGHT FLANK AND FOREHEAD. WOUND TO RIGHT FOREARM, DRSG CDI. SACRAL/ COCCYX WOUND X2 / OPTIFORM DRESG INPLACE/CDI. LEFT LEG SCAB MAUREEN. IV TO THE RFA 20G INTACT AND PATENT/ NO REDNESS OR SWELLING NOTED. CALLL LIGHT IN REACH, BED IN LOW POSITTION, X2 SIDE RAIL UP/ BED ALARM ON- BY NURSING STATION WILL CONTINUE TO MONITOR.
[2019-03-24 07:44] VITALS: BP 132/57
--- NOTE | 2019-03-24 08:36 | NUR ---
PT STATING HAS ABD PAIN 5/10, MEDICATED PER EMAR. WILL CONTNUE TO MONITOR.
[2019-03-24 08:37] VITALS: BP 132/57
[2019-03-24 12:30] VITALS: BP 117/52
--- NOTE | 2019-03-24 12:44 | NUR ---
Initial Nutrition Assessment Dx: PNA, Hypoexmia, Dehydration PMHx: Alzheimer's, HTN PSHx: None Labs: (03/24) Ca 7.9L, H/H 9.9L/31L, others WNL Meds: Coreg, MOM, Zofran, Zosyn Diet: Pureed PO Intake: 60-100% x 2 days Ht: 175 cm Wt: 55.8 kg BMI: 18.2 (Underweight) IBW: 160# %IBW: 77% UBW: 120-125# Age: 88 y/o elderly male Food Allergies: NKFA Skin: Ecchymosis to R flank/forehead region, Stg II P/U to B/L buttocks, sacral coccyx P/U Stg I per administration manager notes. Ismael: 11 Edema: BLE trace edema GI: Last BM x multiple 03/24 Nursing trigger received for appear underweight/malnourished. Per H&P, pt. admitted from [facility] with PNA associated with coughing and congestion. Pt. unable to provide nutritional history d/t Alzheimer's. ST evaluation conducted 03/23 with recommendations for pureed, honey thick liquids. Tolerating diet well with no GI distress noted and no difficulty or pain reported when chewing or swallowing with current diet texture/liquid consistency. Contacted provider TAXATION CONSULTANT Georgette regarding supplement recommendations; not carried out. Will re-attempt contacting provider for wound healing support recommendations. Problem with: No c/o N/V/D/C Problems with: Chewing: N Swallowing: N Current appetite: Good Recent wt change: None %wt change: N/A Vitamin/Supplement use: None Special diet at home: Regular Physical activity: None d/t acute and chronic illness Education: Not appropriate at this time, as pt. unable to comprehend diet education d/t history of Alzheimer's Estimated Nutritional Needs Based on actual body weight 55.8 kg: Energy: 4884-2793 kcal/d (30-35 kcal/kg- older adult maintenance) Protein: 84-95 g/d (1.5-1.7 g/kg)-wound healing support Fluid: 2670-3583 ml/d (1 ml/kcal-fluid balance) or per doctor Nutrition Diagnosis 1. Increased nutrient needs r/t altered metabolic demands 2/2 altered skin integrity AEB pt. noted with Stg II P/U to B/L buttocks, Stg I P/U to sacral coccyx region, and at further risk for additional skin breakdown with low Ismael score. Intervention 1. Ensure Enlive TID w/meals to provide an additional 1080 kcal and 60 g protein. Add thickener to make ONS honey thickened liquid. 2. MVI QD and Vit C BID for wound healing support. Monitor/Evaluate Goal: PO intake at least 75% of estimated needs Monitor: PO intake, Labs, GI function, diet tolerance F/U in 2-3 days as high risk (03/26-03/27)
[2019-03-24 16:33] VITALS: BP 136/60
--- NOTE | 2019-03-24 18:00 | NUR ---
ASSISTED PAYROLL ASSISTANT WITH CHANGING AND REPOSITIONING PT. CHANGED OPTIFORM T THE SACCRAL AREA AND APPLIED ZGUARD. SON AT BEDSIDE. PT TOLERATED 100% OF HIS DINNER. WILL CONTINUE TO MONITOR.
--- NOTE | 2019-03-24 18:49 | NUR ---
NO ACUTE CHANGES AT THIS TIME. NO ACUTE RESP DISTRESS OR SOB NOTED. HOB ELEVATED. BREATHING EVEN AND UNLABORED ON RA. TELE 10 SR WITH PVCS NOTED, DENIES ANY CP OR PRESSURE. NEW IV TO THE LFA INTACT AND PATIENT, INFUSING AT 40 ML/HR, NO REDNESS OR SWELLING NOTED. CALL LIGHT IN REACH. BED IN LOW POSITION, X2 BED ALRAM ON/ BY NURSING STATION. WILL ENDORSE TO INCOMING RN.
--- NOTE | 2019-03-24 19:47 | NUR ---
PT CURRENTLY RESTING IN BED, NO ACUTE DISTRESS. A/O X2, HX OF DEMENTIA/ALZHEIMERS. TELE #10 SHOWING SINUS RHYTHM WITH OCCASIONAL PVC'S, DENIES CHEST PAIN. PULSES PALPABLE IN ALL EXTREMITIES, BLE TRACE EDEMA NOTED. LUNG SOUNDS FINE CRACKLES BILATERALLY, DENIES SOB. O2 VIA NC AT 5L. BOWEL SOUNDS ACTIVE, LAST BM 03/24/19. INCONTINENT. GENERALIZED WEAKNESS. AIR MATTRESS IN PLACE. ECCHYMOSIS TO FOREHEAD AND RIGHT FLANK. SKIN TEAR TO RFA WITH SUTURES, DRESSING CDI. SACRAL/COCCYX WOUND X2, OPTIFOAM DRESSING CDI. IV PATENT AND INTACT. BED IN LOWEST POSITION, SIDE RAILS UP X2, CALL LIGHT WITHIN REACH. WILL CONTINUE TO MONITOR.
[2019-03-24 20:10] VITALS: BP 100/61
--- NOTE | 2019-03-25 00:24 | NUR ---
PT CONFUSED, PULLED OUT IV, CATHETER INTACT. NEW IV STARTED IN LISSETH, PT TOLERATED WELL. PT CLEANED AND REPOSITIONED. WOUND PHOTOS TAKEN. PT CURRENTLY RESTING IN BED, NO ACUTE DISTRESS, SIDE RAILS UP X2, CALL LIGHT WITHIN REACH. WILL CONTINUE TO MONITOR.
[2019-03-25 05:29] VITALS: BP 149/63
[2019-03-25 06:43] LABS: BASOPHIL % 0.1 % (0-2)
[2019-03-25 06:57] LABS: CALCIUM 8.5 mg/dL (8.5-10.1); CARBON DIOXIDE 30.5 mmol/L (21-32); CHLORIDE SERUM 104 mmol/L (98-107); CREATININE SERUM 0.9 mg/dL (0.7-1.3); GLUCOSE SERUM 105 mg/dL (74-106); POTASSIUM SERUM 3.7 mmol/L (3.5-5.1); SODIUM SERUM 143 mmol/L (136-145)
--- NOTE | 2019-03-25 07:15 | NUR ---
RECEIVED REPORT FROM DARRYL CHAVEZ, PT IN BED IN NO ACUTE DISTRESS
--- NOTE | 2019-03-25 07:18 | NUR ---
PT IN BED, IN NO ACUTE DISTRESS, VERBAL, FORGETFUL, ABLE TO MAKE NEEDS KNOWN, PERRLA, NO REDNESS/DRAINAGE, RESP EVEN. CRACKLE/RHOCHI TO BLL, 5L/MIN, NC, 96%, TELE #10, HR NOTED 89, CHEST RISE SYMMETRICALLY, ABD FLAT AND NON-TENDER TO TOUCH, BS ACTIVE X 4, TRACE EDEMA TO BLE, INCONTINENT, SEE SKIN ASSESSMENT, PALP PULSES, CAP REFILLL < 3S, BEDREST, DENIED PAIN/CP/PRESSURE, DENIED N/V/D, IV PATENT AND INFUSING WELL, PUREED, NEED ASSISTANCE W/ FEEDING, ALL NEEDS ADDRESSED AT THIS TIME, SAFETY PROTOCOL FOLLOWED, CONTINUE TO MONITOR
[2019-03-25 07:52] VITALS: BP 127/73
[2019-03-25 08:03] LABS: PLATELET COUNT 464 x10^3mcL (130-400); RED CELL DISTRIBUTION WIDTH 17.4 % (11.5-14.5)
--- NOTE | 2019-03-25 08:32 | NUR ---
AM MED GIVEN PER EMAR, TOLERATED WELL, NO ASO NOTED AT THIS TIME, PT IN NO ACUTE DISTRESS, CONTINUE TO MONITOR
--- NOTE | 2019-03-25 10:35 | NUR ---
BM X 1, LARGE, SOFT, SKIN D/W/C, IN NO ACUTE DISTRESS
[2019-03-25 12:10] VITALS: BP 147/65
--- NOTE | 2019-03-25 14:33 | NUR ---
PT RESTING IN BED, O2 AT 3L/MIN VIA NC, TOLERATED WELL, 94%, CONTINUE TO MONITOR
--- NOTE | 2019-03-25 15:28 | NUR ---
WOUND DRESSING CHANGED, TOLERATED WELL, TURN Q2H, SKIN C/D/W, PROTOCOL FOLLOWED THROUGH, PT IN NO ACUTE DISTRESS
--- NOTE | 2019-03-25 15:46 | NUR ---
PHYSICAL THERAPY DAILY NOTES CO-SIGN All documentation done by the Head Stock Operator for 03/25/19 has been reviewed. I agree with the documentation. Reviewed/Co-Signed by: Graciela Rodriguez PT Documentation Done by:NEY PEREZ PTA
--- NOTE | 2019-03-25 15:49 | NUR ---
PT RESTING IN BED, IN NO ACUTE DISTRESS, O2 WIENED DOWN AT 2L/MIN, TOLERATED WELL, O2 SAT NOTED AT 95%, CONTINUE TO MONITOR
[2019-03-25 16:44] VITALS: BP 154/69
--- NOTE | 2019-03-25 17:18 | NUR ---
PT RESTING IN BED, IN NO ACUTE DISTRESS, VERBAL, CONFUSED AT TIME, RESP EVEN, NO SOB/COUGH, ON 2L/MIN O2, SAT 93%, TOLERATED WELL, CHEST RISE SYMMETRICALLY, TELE #10, LIZETHE CP/PRESSURE/RUBALCAVA, DENIED N/V/D, BS ACTIVE X4, IV PATENT AND INFUSING WELL, SKIN C/D/W, ALL NEEDS ADDRESSED AT THIS TIME, SAFETY PROTOCOL FOLLOWED THROUGH, WILL ENDORSE TO ONCOMING RN
--- NOTE | 2019-03-25 19:30 | NUR ---
PT RECIEVED FROM DAY NURSE. PT RESTING IN BED AT THIS TIME. A/O X2, REORINETED TO TIME AND PLACE. TELE 10, SR W BBB. DENIES CHEST PAIN, N/V, DIZZINESS, AND PALPATATIONS. PALPABLE PUSLES, EDEMA NOTED TO BLE. BREATHING E/U ON 2 L NC, SPO2 95%. GENERALIZED WEAKNESS, BED BOUND. TURNING/REPOSITIONING Q2. IV TO LISSETH, CDI AND INFUSING. BED AT LOWEST POSITION. CALL LIGHT WITHIN REACH. WILL CONTINUE TO MONITOR.
[2019-03-25 21:12] VITALS: BP 141/62
--- NOTE | 2019-03-26 00:45 | NUR ---
PT RESTING IN BED AT THIS TIME. BREATHING E/U. NO ACUTE DISTRESS AT THIS TIME. BED AT LOWEST POSITION. CALL LIGHT WITHIN REACH. WILL CONTINUE TO MONITOR.
[2019-03-26 05:17] VITALS: BP 113/74
--- NOTE | 2019-03-26 06:35 | NUR ---
PT RESTING IN BED COMFORTABLY AT THIS TIME. BREATHING E/U ON 2L NC. NO SIGNS OF ACUTE DISTRESS AT THIS TIME. ALL NEEDS MET THIS SHIFT. BED AT LOWEST POSITION. CALL LIGHT WITHIN REACH. WILL CONTINUE TO MONITOR.
[2019-03-26 06:45] LABS: BASOPHIL % 0.2 % (0-2)
[2019-03-26 06:56] LABS: CALCIUM 8.5 mg/dL (8.5-10.1); CHLORIDE SERUM 103 mmol/L (98-107); GLUCOSE SERUM 91 mg/dL (74-106); POTASSIUM SERUM 3.6 mmol/L (3.5-5.1); SODIUM SERUM 142 mmol/L (136-145)
[2019-03-26 07:04] LABS: PLATELET COUNT 473 x10^3mcL (130-400); RED CELL DISTRIBUTION WIDTH 17.4 % (11.5-14.5)
--- NOTE | 2019-03-26 07:24 | NUR ---
RECEIVED REPORT FROM PALMIRA RN, PT IN NO ACUTE RESP DISTRESS
--- NOTE | 2019-03-26 07:54 | NUR ---
PT IN BED, IN NO ACUTE DISTRESS, VERBAL, ABLE TO MAKE NEEDS KNOWN, CONFUSED AT TIMES, CALM AND COOPERATIVE, PERRLA, NO REDNESS/DRAINAGE, RESP EVEN, NO SOB/COUGH, CRACKLE TO BLL, CHEST RISE SYMMETRICALLY, TELE #10, NSR W/ PVC, ABD FLAT AND NON-TENDER, BS ACTIVE X 4, CAP REFILL < 3S, PALP PULSES, IV PATENT AND INFUSING WELL, DRESING CDI, PURRED DIET, NEED ASSISTANCE W/ FEEDING, SEE SKIN ASSESSMENT, TURN Q2H, SKIN C/D/W, ALL NEEDS ADDRESSED AT THIS TIME, SAFETY PROTOCOL FOLLOWED, CONTINUE TO MONITOR
--- NOTE | 2019-03-26 08:48 | NUR ---
DECREASED OXYMIZER FLOW TO 4 L/MIN.
[2019-03-26 08:52] VITALS: BP 121/61
--- NOTE | 2019-03-26 08:53 | NUR ---
AM MEDS GIVEN PER EMAR, TOLERATED WELL, NO ASE NOTED AT THIS TIME, PT IN BED W/ NO ACUTE DISTRESS
[2019-03-26 10:13] VITALS: BP 121/72
[2019-03-26] MEDS ORDERED: IPRATROPIUM BROM3 M2 HHN (11:05)
[2019-03-26] MEDS ORDERED: LEVAQUIN750 MG PO (11:06)
[2019-03-26 11:24] VITALS: BP 138/76
--- NOTE | 2019-03-26 11:27 | NUR ---
WOUND DRESSING CHANGED, BEDBATH GIVEN, TOLERATED WELL, SKIN D/W/C
[2019-03-26 12:35] VITALS: BP 113/62
--- NOTE | 2019-03-26 12:54 | NUR ---
RESTING IN BED, IN NO ACUTE DISTRESS, TOLERATED LUNCH WELL, 60%, TURN Q2H, SKIN D/C/W, ON 4L/MIN VIA MAXIMIZER, 95%, IN NO ACUTE DISTRESS
--- NOTE | 2019-03-26 13:18 | NUR ---
REPORT GIVEN TO DOREEN CHAVEZ AT [facility], SON JAYSON CALLED AND MADE AWARE OF TRANSFERRING TO [facility], SAID WILL COME LATER AT NIGHT TO SIGN MEDICARE PAPER, COSIGNED W/ LAURA CHAVEZ FOR DC PAPER
--- NOTE | 2019-03-26 14:29 | NUR ---
PIC OF SKIN PROBLEM TAKEN AND KEPT IN CHART, TELE REMOVED AND RETURN TO [facility], IV MAINTAIN PER POLICE COMMUNICATIONS OPERATOR VAIBHAV PORTILLO ORDER AT DC TO [facility], PT IN BED, SKIN D/W/C, WOUND DRESSING CNGAED, DRESSING CDI, PT IN NO ACUTE RESP DISTRES, 4L/MIN, MAXIMIZER, 96%, SAFETY MONITOR
--- NOTE | 2019-03-26 14:57 | NUR ---
PHYSICAL THERAPY DAILY NOTES CO-SIGN All documentation done by the Sql Manager for 03/26/19 has been reviewed. I agree with the documentation. Reviewed/Co-Signed by: Graciela Rodriguez PT Documentation Done by: NEY PEREZ PTA
--- NOTE | 2019-03-26 15:06 | NUR ---
PT DC FROM HOSPITAL, ASSISTED BY 2 EMT FROM [facility] [email or web address], ON 4L/MIN VIA [facility].
--- NOTE | 2019-03-26 15:26 | NUR ---
PT IN 3L/MIN, NC, TOLERATED WELL, 96%, LEFT ON WC ASSISTED BY EMT TO STEPHANIE ALFARO MADE AWARE
== END 2019-03-26 15:25 | DRG 177 ==
LOC: ED 11:54 → DU 14:44
PROVIDERS: Emergency Medicine; ADMIT Internal Medicine
DX: J69.0 Pneumonitis due to inhalation of food and vomit (principal); J96.01 Acute respiratory failure with hypoxia; E86.0 Dehydration; I10 Essential (primary) hypertension; K21.9 Gastro-esophageal reflux disease without esophagitis; E78.5 Hyperlipidemia, unspecified; G30.9 Alzheimer's disease, unspecified; F02.80 Dementia in other diseases classified elsewhere, unspecified severity, without behavioral disturbance, psychotic disturbance, mood disturbance, and anxiety; Z68.23 Body mass index [BMI] 23.0-23.9, adult
CPT/HCPCS: 36600; 83880; 92526-GN; 92610-GN; 97110-GP; 97116-GP; 97530-GP; G0378; J1956; J2543; J7030; J7050; J7620; Q0092

== ENCOUNTER 2019-04-16 11:33 | Inpatient (IN) | payer OTHER ==
[~2019-04-16] VITALS: Ht 177.8 cm; Wt 48.3 kg
[~2019-04-16 11:33] MED LIST changes: +IPRATROPIUM BROM3 M2 HHN; +LEVAQUIN750 MG PO
[2019-04-16 12:20] LABS: BASOPHIL % 0 % (0-2); PLATELET COUNT 409 x10^3mcL (130-400); RED CELL DISTRIBUTION WIDTH 18.1 % (11.5-14.5)
[2019-04-16 12:30] LABS: CALCIUM 9.4 mg/dL (8.5-10.1); CARBON DIOXIDE 30.9 mmol/L (21-32); CHLORIDE SERUM 100 mmol/L (98-107); GLUCOSE SERUM 128 mg/dL (74-106); POTASSIUM SERUM 4.1 mmol/L (3.5-5.1); SODIUM SERUM 142 mmol/L (136-145)
[2019-04-16 12:46] LABS: ALBUMIN 2.5 g/dL (3.4-5.0); ALKALINE PHOSPHATASE 80 U/L (46-116); ALT/SGPT 17 U/L (16-63); AST/SGOT 19 U/L (15-37); TOTAL PROTEIN, SERUM 8.4 g/dL (6.4-8.2)
[2019-04-16 14:37] VITALS: BP 149/68
[2019-04-16 14:46] VITALS: Ht 177.8 cm; Wt 48.3 kg
[2019-04-16 16:34] VITALS: BP 120/84
[2019-04-16 19:00] VITALS: BP 147/68
[2019-04-17 05:45] VITALS: BP 144/55
[2019-04-17 06:22] LABS: BASOPHIL % 0.1 % (0-2); PLATELET COUNT 358 x10^3mcL (130-400)
[2019-04-17 06:40] LABS: RED CELL DISTRIBUTION WIDTH 18.4 % (11.5-14.5)
[2019-04-17 07:09] LABS: CARBON DIOXIDE 36.7 mmol/L (21-32); CHLORIDE SERUM 105 mmol/L (98-107); CREATININE SERUM 0.8 mg/dL (0.7-1.3); GLUCOSE SERUM 114 mg/dL (74-106); SODIUM SERUM 145 mmol/L (136-145)
[2019-04-17 09:45] VITALS: BP 143/56
[2019-04-17 17:04] VITALS: BP 150/57
[2019-04-17 20:48] VITALS: BP 150/68
[2019-04-18] VITALS (7 sets, daily range): BP systolic 126–158; BP diastolic 57–69
[2019-04-18 06:58] LABS: PLATELET COUNT 358 x10^3mcL (130-400)
[2019-04-18 07:07] LABS: BASOPHIL % 0 % (0-2); RED CELL DISTRIBUTION WIDTH 18.3 % (11.5-14.5)
[2019-04-18 07:54] LABS: CALCIUM 9.1 mg/dL (8.5-10.1); CARBON DIOXIDE 33.4 mmol/L (21-32); CHLORIDE SERUM 108 mmol/L (98-107); CREATININE SERUM 0.7 mg/dL (0.7-1.3); GLUCOSE SERUM 99 mg/dL (74-106); POTASSIUM SERUM 3.9 mmol/L (3.5-5.1); SODIUM SERUM 149 mmol/L (136-145)
[2019-04-19 04:49] VITALS: BP 141/67
[2019-04-19 08:41] VITALS: BP 151/74
[2019-04-19] MEDS ORDERED: DOXYCYCLINE HY100 MG PO (10:17)
[2019-04-19 11:33] VITALS: BP 147/72
[2019-04-19 17:00] VITALS: BP 134/69
[2019-04-19 22:29] VITALS: BP 102/53
== END 2019-04-20 02:30 | disposition expired | DRG 871 ==
LOC: ED 11:33 → MU 13:00
PROVIDERS: Emergency Medicine; ADMIT Internal Medicine
DX: A41.9 Sepsis, unspecified organism (principal); J69.0 Pneumonitis due to inhalation of food and vomit; J96.01 Acute respiratory failure with hypoxia; Z68.1 Body mass index [BMI] 19.9 or less, adult; E87.2 Acidosis; I10 Essential (primary) hypertension; K21.9 Gastro-esophageal reflux disease without esophagitis; E78.5 Hyperlipidemia, unspecified; G30.9 Alzheimer's disease, unspecified; F02.80 Dementia in other diseases classified elsewhere, unspecified severity, without behavioral disturbance, psychotic disturbance, mood disturbance, and anxiety; Z66 Do not resuscitate
CPT/HCPCS: 83880; C9113; G0378; J2270; J2543; J3475; J7030; J7042; J7613; J7620; J7644; Q0092